=== PATIENT | female | born 1960 | race Caucasian/White ===

== ENCOUNTER 2022-06-28 07:36 | Outpatient (CLI) | payer MEDICARE, SELFPAY ==
--- NOTE | 2022-06-28 08:02 | USCV_ITS ---
Roxanne Jaeger Age: 61 Gender: F : 1960 Exam Date: 06/28/2022 08:15 Ordering Phys: Valeria Cuellar APN Technologist: BETSEY Exam Location: [facility] Indication: Swollen firm Rt lower leg HISTORY: Swollen Rt lower leg PROCEDURES: Venous duplex imaging was performed in only the right lower extremity.the following venous structures were evaluated: common femoral vein, profunda vein, proximal portion of the greater saphenous vein, superficial femoral vein, and the popliteal vein. In addition, the posterior tibial and peroneal trunk were evaluated. Serial compression, augmentation maneuvers, and spectral Doppler flow evaluation were performed. FINDINGS: Evidence of acute occlusive deep vein thrombosis in the right peroneal vein with abnormal flow dynamics. No additional DVT. CONCLUSIONS Acute right lower extremity deep venous thrombosis, peroneal vein. Dr. Alia Gonzalez DO (Electronically Signed) Final Date: 28 June 2022 11:32 S
== END 2022-06-28 07:37 | disposition home or self-care (01) ==
PROVIDERS: PCP Nurse Practitioner Family; Visit Provider Nurse Practitioner Family
DX: I82.451 Acute embolism and thrombosis of right peroneal vein (principal); M79.604 Pain in right leg; M79.89 Other specified soft tissue disorders
CPT/HCPCS: 93971

== ENCOUNTER 2022-06-28 08:50 | Emergency (ER) | payer MEDICARE, SELFPAY ==
[2022-06-28 09:01] VITALS: BP 192/116; PULSE 77; RESP 16; TEMP 36.9; O2SAT 99; BMI 34.4
--- NOTE | 2022-06-28 09:08 | W.ED.EXTPRO ---
HPI - Extremity Problem General: Chief complaint: Extremity Problem,Nontraumatic Stated complaint: Right blood clot behind knee, Ultrasound sent Time Seen by Provider: 06/28/22 08:51 Source: patient Mode of arrival: ambulatory Limitations: no limitations History of Present Illness: Patient is a 61-year-old female presents to ED today after ultrasound sent her here after they were scanning her right lower leg and noted a positive DVT. Patient tells me she has had bilateral lower extremity swelling worse on the right over the past several weeks. She has noticed pain in the right leg over the past 2 weeks. She states her PCP ordered the ultrasound to evaluate for DVT. Patient denies recent surgery. Denies periods of prolonged inactivity. She is not on any type of hormone replacement. She denies previous DVT/PE. States she chronically gets some shortness of breath with exertion but has not noticed anything outside of her baseline. She currently has no chest pain, shortness of breath, difficulty breathing. Vital signs upon arrival are stable apart from hypertension. Patient tells me she has known hypertension but never checks her blood pressures at home. MD Complaint: extremity pain and extremity swelling Onset (ago): week(s) Pain Consistency: constant Location: left, right and lower extremity Radiation: none Relieving factors: nothing Exacerbating factors: nothing Associated symptoms: Reports no associated symptoms; Deny chest pain or fever(s) Context: history of peripheral vascular disease Review of Systems Const: Denies: fever(s), chills, body aches, fatigue or malaise Card: Reports: edema, swelling of feet/ankles and dyspnea on exertion (chronic); Denies: chest pain, palpitations, irregular heart rhythm, lightheadedness, syncope, pre-syncope, orthopnea, leg pain with exertion or acrocyanosis Resp: Denies: dyspnea, productive cough, non-productive cough, wheezing, stridor, pain on inspiration, change in phlegm color, hemoptysis or chest congestion GI: Denies: abdominal pain Musc: Reports: extremity pain (R LE) and extremity swelling; Denies: neck pain, back pain, joint pain or joint swelling Neuro: Denies: headache(s), numbness in extremities, weakness in extremities or sensory changes Physical Exam Const: COMMON NORMALS: no acute distress, patient oriented x3, no limitations and alert GENERAL APPEARANCE: cooperative NUTRITIONAL APPEARANCE: obese ORIENTATION/CONSCIOUSNESS: Yes awake, Yes oriented to person, Yes oriented to place and Yes oriented to time Resp: COMMON NORMALS: normal respiratory effort and clear to auscultation bilaterally AUSCULTATION: clear to auscultation bilaterally Cardio: COMMON NORMALS: regular rate and regular rhythm RATE: regular rate RHYTHM: regular rhythm Extremity: GENERAL: Yes normal exam except as noted OTHER: bilateral R>L pitting edema; pt has pain to posterior R knee/calf consistent with history of DVT seen recently on US; mild venous stasis skin changes; stage I/II ulcer to R plantar proximal foot-dressed/non-infected Neuro: DARIA COMA SCALE: document GCS findings Daria coma scale eye opening: Spontaneous [place] coma scale verbal response: Orientated [place] coma scale motor response: Obey commands Daria coma scale total score: 15 COMMON NORMALS: patient oriented x3, moves all extremities, no focal motor deficits, no sensory deficits noted and gait normal SENSORIUM/ORIENTATION: Yes alert, Yes oriented to person, Yes oriented to place and Yes oriented to time Course Vital Signs: Vital signs: Vital Signs Temperature 98.4 F 06/28/22 09:01 Pulse Rate 79 06/28/22 11:22 Respiratory Rate 16 06/28/22 11:22 Blood Pressure 198/104 06/28/22 11:22 Pulse Oximetry 95 06/28/22 11:22 Oxygen Delivery Me thod 06/28/22 09:47 MDM - Extremity (Nontraumatic) Medical Decision Making Patient has a DVT to her right peroneal vein seen on ultrasound imaging was performed earlier today. She has no contraindication to anticoagulation therefore patient will be placed on Eliquis. Recommend follow-up with her primary care provider within the next 1 to 2 weeks so they can establish a plan for length of treatment and repeat ultrasound imaging. Patient is hypertensive upon arrival. She tells me she never takes her blood pressure at home but is on medication for this. Recommend she keep a blood pressure log and speak to primary care so they can titrate medications as needed. Blood work here overall unremarkable. She does have mild elevations to her BNP at 387. CXR does not show cardiomegaly. Can be followed up through her primary care provider as well. Strict return ED precautions given. Lab Data 06/28/22 09:40 06/28/22 09:40 Radiology Impressions Chest X-Ray 06/28/22 09:21 Impression: Atherosclerosis. Laboratory Results WBC 10.8 10^3/uL (4.0-10.0) H 06/28/22 09:40 RBC 4.52 10^6/uL (4.1-5.3) 06/28/22 09:40 Hgb 13.5 g/dL (11.5-15.3) 06/28/22 09:40 Hct 41.8 % (37.0-47.0) 06/28/22 09:40 MCV 92.5 fl (81-99) 06/28/22 09:40 MCH 29.9 pg (28.0-34.0) 06/28/22 09:40 MCHC 32.3 g/dL (30.0-36.0) 06/28/22 09:40 RDW 14.3 % (12.1-15.1) 06/28/22 09:40 Plt Count 259 10^3/cmm (130-400) 06/28/22 09:40 MPV 11.2 fL (7.4-10.4) H 06/28/22 09:40 Neut % (Auto) 57.4 % 06/28/22 09:40 Lymph % (Auto) 34.9 % 06/28/22 09:40 [place] % (Auto) 4.8 % 06/28/22 09:40 Eos % (Auto) 1.8 % 06/28/22 09:40 Baso % (Auto) 0.6 % 06/28/22 09:40 Neut # (Auto) 6.21 10^3/uL (1.8-7.7) 06/28/22 09:40 Lymph # (Auto) 3.8 10^3/uL (0.8-4.8) 06/28/22 09:40 [place] # (Auto) 0.5 10^3/uL (0.2-0.9) 06/28/22 09:40 Eos # (Auto) 0.2 10^3/uL (0.0-0.8) 06/28/22 09:40 Baso # (Auto) 0.1 10^3/uL (0.0-0.1) 06/28/22 09:40 Nucleated RBC % (auto) 0 % 06/28/22 09:40 Nucleated RBCs # 0.0 /100WBC 06/28/22 09:40 Sodium 138 mmol/L (136-145) 06/28/22 09:40 Potassium 4.4 mmol/L (3.5-5.1) 06/28/22 09:40 Chloride 101 mmol/L (98-107) 06/28/22 09:40 Carbon Dioxide 28 mmol/L (22-29) 06/28/22 09:40 Anion Gap 13.4 (5-19) 06/28/22 09:40 BUN 19 mg/dL (8-23) 06/28/22 09:40 Creatinine 1.0 mg/dL (0.5-0.9) H 06/28/22 09:40 GFR Calculation 56.6 mL/min (90-130) L 06/28/22 09:40 Glucose 128 mg/dL (65-115) H 06/28/22 09:40 Calculated Osmolality 290 mOsm/kg (285-295) 06/28/22 09:40 Calcium 9.5 mg/dL (8.5-10.5) 06/28/22 09:40 Total Bilirubin 0.2 mg/dL (0.15-1.2) 06/28/22 09:40 AST 7 U/L (0-32) 06/28/22 09:40 ALT 7 U/L (0-33) 06/28/22 09:40 Alkaline Phosphatase 72 U/L (35-105) 06/28/22 09:40 NT-Pro-B Natriuret Pep 387 pg/mL (0-125) H 06/28/22 09:40 Total Protein 6.5 g/dL (6.6-8.7) L 06/28/22 09:40 Albumin 3.4 g/dL (3.5-5.2) L 06/28/22 09:40 Globulin 3.1 g/dL (1.3-4.6) 06/28/22 09:40 Discharge Plan Discharge Patient Disposition: Home Clinical Impression: Deep vein thrombosis of lower extremity, Hypertension, Bilateral leg edema Condition: Stable Prescriptions: Jose Miguel Estrada DVT-PE Treat 30D Start 5 mg (74 tabs) tablets,dose pack See Rx Instructions .ROUTE .COMPLEX Qty: 74 0RF Rx Instructions: orally per package directions Discharge Orders: Discharge ED (Routine); Ordered 06/28/22 Ordered By: Jasmine Valdes Referrals: Valeria Cuellar APN [Primary Care Provider] - Patient Instructions: Apixaban (By mouth) (Eliquis), Deep Vein Thrombosis (DC), Leg Edema (ED) Activity Restrictions/Additional Instructions: As we discussed fill your prescription for blood thinners today and start them immediately. Your prescription should be a prefilled blister/starter pack in which you will take 10 mg twice daily for 7 days and then 5 mg twice daily from then on. Please follow-up with your primary care provider in the next 1 to 2 weeks so they can establish plan for continuing your blood thinners and ultrasound monitoring. They can also speak to you about your lower leg swelling. You need to return to the emergency department for severe chest pain, shortness of breath, difficulty breathing or any other concerns you may have. Coding Level of Care Code ED Cyber Systems Administrator for [place]
--- NOTE | 2022-06-28 09:21 | XR_ITS ---
WS: [id number] Portable AP upright chest, 06/28/2022 Clinical Data: edema Comparison: None. Findings: No nodules, masses or effusions are seen. The heart is normal. The pulmonary vascularity is not increased. No pneumonia or pneumothorax is seen. The aortic arch and descending thoracic aorta s how mild tortuosity XR/XR chest 1V portable [id number] Impression: Atherosclerosis.
--- NOTE | 2022-06-28 09:21 | ECG_ITS ---
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 Measurements Intervals [place] Rate: 79 P: 67 [place]: 218 QRS: -25 QRSD: 112 T: 68 QT: 370 QTc: 426 Interpretive Statements SINUS RHYTHM WITH FIRST DEGREE AV BLOCK LOW QRS VOLTAGE IN PRECORDIAL LEADS [QRS DEFLECTION < 1.0 mV IN CHEST LEADS] PATTERN CONSISTENT WITH PULMONARY DISEASE SEPTAL MYOCARDIAL INFARCTION , PROBABLY OLD [40+ ms Q WAVE IN V1/V2] No previous ECG available for comparison Electronically Signed On 06-28-2022 17:32:40 CHILD AND ADOLESCENT PSYCHIATRIST by Lb Vaughan M.D. [email or web address]
[2022-06-28 09:47] VITALS: BP 197/120; PULSE 78; RESP 16; O2SAT 96
[2022-06-28 09:49] LABS: Basophils # 0.1 10^3/uL (0.0-0.1); Basophils % 0.6 %; Eosinophils # 0.2 10^3/uL (0.0-0.8); Eosinophils % 1.8 %; Hematocrit 41.8 % (37.0-47.0); Hemoglobin 13.5 g/dL (11.5-15.3); Lymphocytes # 3.8 10^3/uL (0.8-4.8); Lymphocytes % 34.9 %; Mean Corpuscular HGB Conc 32.3 g/dL (30.0-36.0); Mean Corpuscular Hemoglobin 29.9 pg (28.0-34.0); Mean Corpuscular Volume 92.5 fl (81-99); Mean Platelet Volume 11.2 fL (7.4-10.4); Monocytes # 0.5 10^3/uL (0.2-0.9); Monocytes % 4.8 %; Neutrophils # 6.21 10^3/uL (1.8-7.7); Neutrophils % 57.4 %; Nucleated Red Blood Cells % 0 %; Platelet Count 259 10^3/cmm (130-400); Red Blood Count 4.52 10^6/uL (4.1-5.3); Red Cell Distribution Width 14.3 % (12.1-15.1); White Blood Count 10.8 10^3/uL (4.0-10.0)
[2022-06-28] MEDS: hyDRALAzine 20 mg/mL INJ 1 mL 10 MG IVP (09:53)
[2022-06-28 10:20] LABS: Alanine Aminotransferase 7 U/L (0-33); Albumin Level 3.4 g/dL (3.5-5.2); Alkaline Phosphatase 72 U/L (35-105); Anion Gap 13.4 (5-19); Aspartate Amino Transferase 7 U/L (0-32); Blood Urea Nitrogen 19 mg/dL (8-23); Calcium 9.5 mg/dL (8.5-10.5); Carbon Dioxide 28 mmol/L (22-29); Chloride 101 mmol/L (98-107); Globulin 3.1 g/dL (1.3-4.6); Glomerular Filtration Rate 56.6 mL/min (90-130); Glucose 128 mg/dL (65-115); NT Pro B Type Natriuretic Pept 387 pg/mL (0-125); Osmolality Calculated 290 mOsm/kg (285-295); Potassium 4.4 mmol/L (3.5-5.1); Sodium 138 mmol/L (136-145); Total Bilirubin 0.2 mg/dL (0.15-1.2); Total Protein 6.5 g/dL (6.6-8.7)
[2022-06-28 10:39] VITALS: BP 184/126; PULSE 78; O2SAT 95
[2022-06-28 11:22] VITALS: BP 198/104; PULSE 79; RESP 16; O2SAT 95
== END 2022-06-28 11:23 | disposition home or self-care (01) ==
PROVIDERS: Emergency Provider Physician Assistant; PCP Nurse Practitioner Family
DX: I82.401 Acute embolism and thrombosis of unspecified deep veins of right lower extremity (principal); R60.0 Localized edema; I10 Essential (primary) hypertension
CPT/HCPCS: 71045; 80053; 83880; 85025; 93005; 93971; 96374; 99285; J0360

== ENCOUNTER → 2022-08-19 10:09 | Outpatient (BNVA) | payer MEDICARE, SELFPAY | PROVIDERS: PCP Nurse Practitioner Family; Visit Provider Thoracic Surgery (Cardiothoracic Vascular Surgery) | DX: I82.451 Acute embolism and thrombosis of right peroneal vein (principal); I83.93 Asymptomatic varicose veins of bilateral lower extremities; F17.210 Nicotine dependence, cigarettes, uncomplicated | CPT/HCPCS: 99203 ==

== ENCOUNTER → 2022-08-26 15:30 | Outpatient (BNVA) | payer MEDICARE, SELFPAY | PROVIDERS: PCP Nurse Practitioner Family; Visit Provider Podiatrist Foot & Ankle Surgery | DX: E11.621 Type 2 diabetes mellitus with foot ulcer (principal); L97.513 Non-pressure chronic ulcer of other part of right foot with necrosis of muscle; E11.42 Type 2 diabetes mellitus with diabetic polyneuropathy; M21.611 Bunion of right foot; M21.612 Bunion of left foot; M21.41 Flat foot [pes planus] (acquired), right foot; M21.42 Flat foot [pes planus] (acquired), left foot; Z79.4 Long term (current) use of insulin; Z79.84 Long term (current) use of oral hypoglycemic drugs | CPT/HCPCS: 11043; 36415; 73630; 80053; 85025; 85651; 86140; 87070; 87075; 87205; 99204 ==

== ENCOUNTER 2022-08-27 11:46 | Outpatient (CLI) | payer MEDICARE, SELFPAY ==
--- NOTE | 2022-08-27 11:57 | USCV_ITS ---
Roxanne Jaeger Age: 61 Gender: F : 1960 Exam Date: 08/27/2022 12:08 Ordering Phys: Valeria Cuellar APN Technologist: CT [place] [facility] [place] Indication: lt leg swelling PROCEDURES: Venous duplex imaging was performed in only the left lower extremity. In addition, the posterior tibial and peroneal trunk were evaluated. On the left side, the common femoral, superficial femoral, profunda femoral, popliteal, posterior tibial, greater saphenous veins, and the peroneal trunk were identified and interrogated in the standard fashion. These veins were found to be easily compressible with spontaneous blood flow. No evidence of insufficiency or thrombus noted. FINDINGS: no dvt, there is a abnormal bakers cyst/ hematoma in pop fossa CONCLUSIONS No evidence of left lower extremity DVT. Complex left popliteal cyst or hematoma measuring 2.3 x 1.2 x 3.6cm Broderick Turner MD (Electronically Signed) Final Date: 27 August 2022 13:22 S
== END 2022-08-27 11:47 | disposition home or self-care (01) ==
PROVIDERS: PCP Nurse Practitioner Family; Visit Provider Nurse Practitioner Family
DX: M79.89 Other specified soft tissue disorders (principal)
CPT/HCPCS: 93971

== ENCOUNTER → 2022-09-02 07:56 | Outpatient (BNVA) | payer MEDICARE, SELFPAY | PROVIDERS: PCP Nurse Practitioner Family; Visit Provider Podiatrist Foot & Ankle Surgery | DX: E11.42 Type 2 diabetes mellitus with diabetic polyneuropathy (principal); M21.611 Bunion of right foot; M21.612 Bunion of left foot; M21.41 Flat foot [pes planus] (acquired), right foot; M21.42 Flat foot [pes planus] (acquired), left foot; E11.621 Type 2 diabetes mellitus with foot ulcer; L97.513 Non-pressure chronic ulcer of other part of right foot with necrosis of muscle; Z79.84 Long term (current) use of oral hypoglycemic drugs; Z79.4 Long term (current) use of insulin | CPT/HCPCS: 99214 ==

== ENCOUNTER → 2022-09-09 07:47 | Outpatient (BNVA) | payer MEDICARE, SELFPAY | PROVIDERS: PCP Nurse Practitioner Family; Visit Provider Podiatrist Foot & Ankle Surgery | DX: E11.621 Type 2 diabetes mellitus with foot ulcer (principal); L97.513 Non-pressure chronic ulcer of other part of right foot with necrosis of muscle; E11.42 Type 2 diabetes mellitus with diabetic polyneuropathy; M21.611 Bunion of right foot; M21.612 Bunion of left foot; M21.41 Flat foot [pes planus] (acquired), right foot; M21.42 Flat foot [pes planus] (acquired), left foot; Z79.84 Long term (current) use of oral hypoglycemic drugs; Z79.4 Long term (current) use of insulin | CPT/HCPCS: 99213 ==

== ENCOUNTER → 2022-09-16 08:26 | Outpatient (BNVA) | payer MEDICARE, SELFPAY | PROVIDERS: PCP Nurse Practitioner Family; Visit Provider Podiatrist Foot & Ankle Surgery | DX: E11.621 Type 2 diabetes mellitus with foot ulcer (principal); Z79.4 Long term (current) use of insulin; Z79.84 Long term (current) use of oral hypoglycemic drugs; E11.42 Type 2 diabetes mellitus with diabetic polyneuropathy; L97.513 Non-pressure chronic ulcer of other part of right foot with necrosis of muscle; M21.611 Bunion of right foot; M21.612 Bunion of left foot; M21.41 Flat foot [pes planus] (acquired), right foot; M21.42 Flat foot [pes planus] (acquired), left foot | CPT/HCPCS: 99214 ==

== ENCOUNTER → 2022-09-23 08:18 | Outpatient (BNVA) | payer MEDICARE, SELFPAY | PROVIDERS: PCP Nurse Practitioner Family; Visit Provider Podiatrist Foot & Ankle Surgery | DX: E11.621 Type 2 diabetes mellitus with foot ulcer (principal); L97.513 Non-pressure chronic ulcer of other part of right foot with necrosis of muscle; E11.42 Type 2 diabetes mellitus with diabetic polyneuropathy; M21.611 Bunion of right foot; M21.612 Bunion of left foot; M21.41 Flat foot [pes planus] (acquired), right foot; M21.42 Flat foot [pes planus] (acquired), left foot; Z86.718 Personal history of other venous thrombosis and embolism; Z79.01 Long term (current) use of anticoagulants; Z79.84 Long term (current) use of oral hypoglycemic drugs; Z79.4 Long term (current) use of insulin | CPT/HCPCS: 11043; 99214 ==

== ENCOUNTER 2022-09-28 10:07 | Outpatient (CLI) | payer MEDICARE, SELFPAY ==
--- NOTE | 2022-09-28 10:18 | USCV_ITS ---
Roxanne Jaeger Age: 62 Gender: F : 1960 Exam Date: 09/28/2022 10:25 Ordering Phys: Sameer Lares DPM Technologist: CT [place] [facility] [place]ication: palp area rt ankle PROCEDURES: Venous duplex imaging was performed in only the right lower extremity. On the right side, the common femoral, superficial femoral, profunda femoral, popliteal, posterior tibial, greater saphenous veins and the peroneal trunk were identified and interrogated in the standard fashion. These veins were found to be easily compressible with spontaneous blood flow. No evidence of insufficiency or thrombus noted. FINDINGS: Normal 2-D Doppler and augmentation and compressibility throughout the lower extremity venous structures. Additional imaging through the proximal calf veins also reveals no thrombus. Limited evaluation of the greater saphenous vein is patent with no thrombus. Palpable area near the ankle corresponds to a varicose vein. CONCLUSIONS No DVT right lower extremity. Dr. Alia Gonzalez DO (Electronically Signed) Final Date: 28 Sep 2022 11:49 S
== END 2022-09-28 10:08 | disposition home or self-care (01) ==
PROVIDERS: PCP Nurse Practitioner Family; Visit Provider Podiatrist Foot & Ankle Surgery
DX: M79.604 Pain in right leg (principal)
CPT/HCPCS: 93971

== ENCOUNTER → 2022-09-30 08:58 | Outpatient (BNVA) | payer MEDICARE, SELFPAY | PROVIDERS: PCP Nurse Practitioner Family; Visit Provider Podiatrist Foot & Ankle Surgery | DX: E11.42 Type 2 diabetes mellitus with diabetic polyneuropathy (principal); E11.621 Type 2 diabetes mellitus with foot ulcer; Z79.84 Long term (current) use of oral hypoglycemic drugs; Z79.4 Long term (current) use of insulin; L97.513 Non-pressure chronic ulcer of other part of right foot with necrosis of muscle; M21.611 Bunion of right foot; M21.612 Bunion of left foot; M21.41 Flat foot [pes planus] (acquired), right foot; M21.42 Flat foot [pes planus] (acquired), left foot; Z86.718 Personal history of other venous thrombosis and embolism; Z79.01 Long term (current) use of anticoagulants | CPT/HCPCS: 11042; 99213 ==

== ENCOUNTER → 2022-10-07 09:15 | Outpatient (BNVA) | payer MEDICARE, SELFPAY | PROVIDERS: PCP Nurse Practitioner Family; Visit Provider Podiatrist Foot & Ankle Surgery | DX: E11.621 Type 2 diabetes mellitus with foot ulcer (principal); Z79.4 Long term (current) use of insulin; Z79.84 Long term (current) use of oral hypoglycemic drugs; E11.42 Type 2 diabetes mellitus with diabetic polyneuropathy; L97.513 Non-pressure chronic ulcer of other part of right foot with necrosis of muscle; M21.611 Bunion of right foot; M21.612 Bunion of left foot; M21.41 Flat foot [pes planus] (acquired), right foot; M21.42 Flat foot [pes planus] (acquired), left foot; Z86.718 Personal history of other venous thrombosis and embolism; Z79.01 Long term (current) use of anticoagulants | CPT/HCPCS: 11042 ==

== ENCOUNTER → 2022-10-28 10:27 | Outpatient (BNVA) | payer MEDICARE, SELFPAY | PROVIDERS: PCP Nurse Practitioner Family; Visit Provider Podiatrist Foot & Ankle Surgery | DX: E11.42 Type 2 diabetes mellitus with diabetic polyneuropathy (principal); M21.611 Bunion of right foot; M21.612 Bunion of left foot; M21.41 Flat foot [pes planus] (acquired), right foot; M21.42 Flat foot [pes planus] (acquired), left foot; L97.513 Non-pressure chronic ulcer of other part of right foot with necrosis of muscle; Z86.718 Personal history of other venous thrombosis and embolism; Z79.01 Long term (current) use of anticoagulants; E11.621 Type 2 diabetes mellitus with foot ulcer; Z79.4 Long term (current) use of insulin; Z79.84 Long term (current) use of oral hypoglycemic drugs | CPT/HCPCS: 11043 ==

== ENCOUNTER → 2022-11-04 08:25 | Outpatient (BNVA) | payer MEDICARE, SELFPAY | PROVIDERS: PCP Nurse Practitioner Family; Visit Provider Podiatrist Foot & Ankle Surgery | DX: E11.621 Type 2 diabetes mellitus with foot ulcer (principal); L97.513 Non-pressure chronic ulcer of other part of right foot with necrosis of muscle; E11.42 Type 2 diabetes mellitus with diabetic polyneuropathy; M21.611 Bunion of right foot; M21.612 Bunion of left foot; M21.41 Flat foot [pes planus] (acquired), right foot; M21.42 Flat foot [pes planus] (acquired), left foot; Z86.718 Personal history of other venous thrombosis and embolism; Z79.01 Long term (current) use of anticoagulants; Z79.4 Long term (current) use of insulin; Z79.84 Long term (current) use of oral hypoglycemic drugs | CPT/HCPCS: 11042 ==

== ENCOUNTER → 2022-11-11 10:21 | Outpatient (BNVA) | payer MEDICARE, SELFPAY | PROVIDERS: PCP Nurse Practitioner Family; Visit Provider Podiatrist Foot & Ankle Surgery | DX: E11.621 Type 2 diabetes mellitus with foot ulcer (principal); Z79.4 Long term (current) use of insulin; Z79.84 Long term (current) use of oral hypoglycemic drugs; L97.513 Non-pressure chronic ulcer of other part of right foot with necrosis of muscle; Z51.89 Encounter for other specified aftercare; E11.42 Type 2 diabetes mellitus with diabetic polyneuropathy; M21.611 Bunion of right foot; M21.612 Bunion of left foot; M21.41 Flat foot [pes planus] (acquired), right foot; M21.42 Flat foot [pes planus] (acquired), left foot; Z86.718 Personal history of other venous thrombosis and embolism; Z79.01 Long term (current) use of anticoagulants | CPT/HCPCS: 99213 ==

== ENCOUNTER → 2022-11-18 08:11 | Outpatient (BNVA) | payer MEDICARE, SELFPAY | PROVIDERS: PCP Nurse Practitioner Family; Visit Provider Podiatrist Foot & Ankle Surgery | DX: E11.42 Type 2 diabetes mellitus with diabetic polyneuropathy (principal); E11.621 Type 2 diabetes mellitus with foot ulcer; M21.611 Bunion of right foot; M21.612 Bunion of left foot; M21.41 Flat foot [pes planus] (acquired), right foot; M21.42 Flat foot [pes planus] (acquired), left foot; Z86.718 Personal history of other venous thrombosis and embolism; Z79.01 Long term (current) use of anticoagulants; L97.512 Non-pressure chronic ulcer of other part of right foot with fat layer exposed; Z79.84 Long term (current) use of oral hypoglycemic drugs; Z79.4 Long term (current) use of insulin | CPT/HCPCS: 11042 ==

== ENCOUNTER → 2022-11-30 07:31 | Outpatient (BNVA) | payer MEDICARE, SELFPAY | PROVIDERS: PCP Nurse Practitioner Family; Visit Provider Podiatrist Foot & Ankle Surgery | DX: E11.42 Type 2 diabetes mellitus with diabetic polyneuropathy (principal); M21.611 Bunion of right foot; M21.612 Bunion of left foot; M21.41 Flat foot [pes planus] (acquired), right foot; M21.42 Flat foot [pes planus] (acquired), left foot; Z79.01 Long term (current) use of anticoagulants; L97.512 Non-pressure chronic ulcer of other part of right foot with fat layer exposed; E11.621 Type 2 diabetes mellitus with foot ulcer; Z79.4 Long term (current) use of insulin; Z79.84 Long term (current) use of oral hypoglycemic drugs | CPT/HCPCS: 11042; 99214 ==

== ENCOUNTER → 2022-12-07 07:08 | Outpatient (BNVA) | payer MEDICARE, SELFPAY | PROVIDERS: PCP Nurse Practitioner Family; Visit Provider Podiatrist Foot & Ankle Surgery | DX: E11.42 Type 2 diabetes mellitus with diabetic polyneuropathy; M21.611 Bunion of right foot; M21.612 Bunion of left foot; M21.41 Flat foot [pes planus] (acquired), right foot; M21.42 Flat foot [pes planus] (acquired), left foot; Z79.01 Long term (current) use of anticoagulants; L97.512 Non-pressure chronic ulcer of other part of right foot with fat layer exposed; E11.621 Type 2 diabetes mellitus with foot ulcer; Z79.84 Long term (current) use of oral hypoglycemic drugs; Z79.4 Long term (current) use of insulin | CPT/HCPCS: 11042; 99214 ==

== ENCOUNTER 2022-12-13 09:30 | Outpatient (CLI) | payer MEDICARE, SELFPAY ==
--- NOTE | 2022-12-13 10:00 | USCV_ITS ---
Roxanne Jaeger Age: 62 Gender: F : 1960 Exam Date: 12/13/2022 10:05 Ordering Phys: Sameer Lares DPM Technologist: RICK [place]am [place] [facility] [place] Indication: LE Swelling HISTORY: Lower extremity swelling. Hx of DVT in Rt Pop PROCEDURES: Venous duplex imaging was performed in only the right lower extremity. The following venous structures were evaluated: common femoral vein, profunda vein, proximal portion of the greater saphenous vein, superficial femoral vein, and the popliteal vein. In addition, the posterior tibial and peroneal trunk were evaluated. Serial compression, augmentation maneuvers, and spectral Doppler flow evaluation were performed. FINDINGS: Normal 2-D Doppler and augmentation and compressibility throughout the lower extremity venous structures. Additional imaging through the proximal calf veins also reveals no thrombus. Limited evaluation of the greater saphenous vein is patent with no thrombus. CONCLUSIONS No DVT right lower extremity. Dr. Alia Gonzalez DO (Electronically Signed) Final Date: 13 December 2022 10:31 S
== END 2022-12-13 09:31 | disposition home or self-care (01) ==
PROVIDERS: PCP Nurse Practitioner Family; Visit Provider Podiatrist Foot & Ankle Surgery
DX: M79.661 Pain in right lower leg (principal); Z86.718 Personal history of other venous thrombosis and embolism; M79.89 Other specified soft tissue disorders; E11.621 Type 2 diabetes mellitus with foot ulcer; L97.512 Non-pressure chronic ulcer of other part of right foot with fat layer exposed; Z51.89 Encounter for other specified aftercare; E11.42 Type 2 diabetes mellitus with diabetic polyneuropathy; M21.611 Bunion of right foot; M21.612 Bunion of left foot; M21.41 Flat foot [pes planus] (acquired), right foot; M21.42 Flat foot [pes planus] (acquired), left foot; Z79.01 Long term (current) use of anticoagulants; M79.605 Pain in left leg; Z79.84 Long term (current) use of oral hypoglycemic drugs; Z79.4 Long term (current) use of insulin
CPT/HCPCS: 11042; 93971

== ENCOUNTER → 2022-12-20 12:57 | Outpatient (BNVA) | payer MEDICARE, SELFPAY | PROVIDERS: PCP Nurse Practitioner Family; Visit Provider Podiatrist Foot & Ankle Surgery | DX: E11.621 Type 2 diabetes mellitus with foot ulcer (principal); E11.42 Type 2 diabetes mellitus with diabetic polyneuropathy; M21.611 Bunion of right foot; M21.612 Bunion of left foot; M21.41 Flat foot [pes planus] (acquired), right foot; M21.42 Flat foot [pes planus] (acquired), left foot; Z79.01 Long term (current) use of anticoagulants; L97.512 Non-pressure chronic ulcer of other part of right foot with fat layer exposed | CPT/HCPCS: 99213 ==

== ENCOUNTER → 2022-12-28 09:38 | Outpatient (BNVA) | payer MEDICARE, SELFPAY | PROVIDERS: PCP Nurse Practitioner Family; Visit Provider Podiatrist Foot & Ankle Surgery | DX: E11.621 Type 2 diabetes mellitus with foot ulcer (principal); L97.512 Non-pressure chronic ulcer of other part of right foot with fat layer exposed; E11.42 Type 2 diabetes mellitus with diabetic polyneuropathy; M21.611 Bunion of right foot; M21.612 Bunion of left foot; M21.41 Flat foot [pes planus] (acquired), right foot; M21.42 Flat foot [pes planus] (acquired), left foot; Z79.01 Long term (current) use of anticoagulants; Z79.84 Long term (current) use of oral hypoglycemic drugs; Z79.4 Long term (current) use of insulin | CPT/HCPCS: 11042 ==

== ENCOUNTER → 2023-01-18 12:55 | Outpatient (BNVA) | payer MEDICARE, SELFPAY | PROVIDERS: PCP Nurse Practitioner Family; Visit Provider Nurse Practitioner Family | DX: L89.892 Pressure ulcer of other site, stage 2 (principal) | CPT/HCPCS: 11042; 87070; 87077; 87176; 87186; 87205; 99213; A6210; A6251 ==

== ENCOUNTER 2023-01-19 10:36 | Outpatient (CLI) | payer MEDICARE, SELFPAY ==
[2023-01-19 11:14] LABS: Alanine Aminotransferase 9 U/L (0-33); Albumin Level 3.9 g/dL (3.5-5.2); Alkaline Phosphatase 68 U/L (35-105); Anion Gap 14.5 (5-19); Aspartate Amino Transferase 6 U/L (0-32); Blood Urea Nitrogen 28 mg/dL (8-23); Calcium 9.6 mg/dL (8.5-10.5); Carbon Dioxide 29 mmol/L (22-29); Chloride 102 mmol/L (98-107); Globulin 3.3 g/dL (1.3-4.6); Glomerular Filtration Rate 41.6 mL/min (90-130); Glucose 160 mg/dL (65-115); Osmolality Calculated 301 mOsm/kg (285-295); Potassium 4.5 mmol/L (3.5-5.1); Sodium 141 mmol/L (136-145); Total Bilirubin 0.2 mg/dL (0.15-1.2); Total Protein 7.2 g/dL (6.6-8.7)
== END 2023-01-19 10:37 | disposition home or self-care (01) ==
PROVIDERS: PCP Nurse Practitioner Family; Visit Provider Nurse Practitioner Family
DX: E11.621 Type 2 diabetes mellitus with foot ulcer (principal); L97.509 Non-pressure chronic ulcer of other part of unspecified foot with unspecified severity
CPT/HCPCS: 36415; 80053

== ENCOUNTER 2023-01-21 15:42 | Outpatient (CLI) | payer MEDICARE, SELFPAY ==
--- NOTE | 2023-01-21 16:15 | MR_ITS ---
WS: [id number] MRI RIGHT FOOT WITH AND WITHOUT CONTRAST. COMPARISON: Radiographs 08/26/2022 Multiplanar, multisequence imaging is performed with contrast. MultiHance 20 mL IV. Marked hallux valgus deformity of the first metatarsophalangeal joint. Erosions with joint space narr owing and osteophytes at the first metatarsophalangeal joint. Erosions on both sides of the joint. Mi ld erosion and enhancement involving the medial most aspect of the first metatarsal head. There is ov erlying soft tissue edema with only minimal enhancement. Marked flattening and loss of the normal arch of the foot. Small erosions along the tarsal metatarsal articulation. Osteophytes and bone production in the midfoot. Mild loss of the arch and plantar move ment of the tarsal bones. These findings are most consistent with a Charcot joint related to diabetes . Lisfranc joint not significantly widened. Smaller subtalar joint erosions. There is a large amount of edema surrounding the ankle and foot. No focal collections. No significant ly enhancing collections. There is mild enhanced at the first metatarsophalangeal joint location The Achilles tendon appears normal. As visualized the flexor and extension tendons are normal other t schneider edema along the tendon sheaths. IMPRESSION: 1. Marked hallux valgus deformity. Very tiny erosion with mild enhancement involving the first metata rsal head. Suspicious for early changes of osteomyelitis. 2. Overlying soft tissue edema and mild cellulitis at the level of the first metatarsophalangeal join t. 3. Charcot joint involving the midfoot.
[2023-01-21] MEDS: gadobenate dimeglumine 20 mL vial IV (17:52)
== END 2023-01-21 15:43 | disposition home or self-care (01) ==
PROVIDERS: PCP Nurse Practitioner Family; Visit Provider Nurse Practitioner Family
DX: E11.621 Type 2 diabetes mellitus with foot ulcer (principal); L97.509 Non-pressure chronic ulcer of other part of unspecified foot with unspecified severity; M20.11 Hallux valgus (acquired), right foot; E11.610 Type 2 diabetes mellitus with diabetic neuropathic arthropathy
CPT/HCPCS: 73720; A9577

== ENCOUNTER → 2023-01-25 10:52 | Outpatient (BNVA) | payer MEDICARE, SELFPAY | PROVIDERS: PCP Nurse Practitioner Family; Visit Provider Nurse Practitioner Family | DX: I96 Gangrene, not elsewhere classified (principal); L89.512 Pressure ulcer of right ankle, stage 2 | CPT/HCPCS: 11042; A6210; A6251 ==

== ENCOUNTER → 2023-02-01 10:30 | Outpatient (BNVA) | payer MEDICARE, SELFPAY | PROVIDERS: PCP Nurse Practitioner Family; Visit Provider Nurse Practitioner Family | DX: I96 Gangrene, not elsewhere classified (principal); L89.512 Pressure ulcer of right ankle, stage 2 | CPT/HCPCS: 11042; A6210; A6251 ==

== ENCOUNTER → 2023-02-03 14:31 | Outpatient (BNVA) | payer MEDICARE, SELFPAY | PROVIDERS: PCP Nurse Practitioner Family; Visit Provider Nurse Practitioner Family | DX: L89.512 Pressure ulcer of right ankle, stage 2 (principal) | CPT/HCPCS: 99212; A6210; A6251 ==

== ENCOUNTER → 2023-02-08 13:54 | Outpatient (BNVA) | payer MEDICARE, SELFPAY | PROVIDERS: PCP Nurse Practitioner Family; Visit Provider Nurse Practitioner Family | DX: L89.512 Pressure ulcer of right ankle, stage 2 (principal) | CPT/HCPCS: 97597 ==

== ENCOUNTER → 2023-02-15 09:45 | Outpatient (BNVA) | payer MEDICARE, SELFPAY | PROVIDERS: PCP Nurse Practitioner Family; Visit Provider Podiatrist Foot & Ankle Surgery | DX: E11.42 Type 2 diabetes mellitus with diabetic polyneuropathy (principal); M21.611 Bunion of right foot; M21.612 Bunion of left foot; M21.41 Flat foot [pes planus] (acquired), right foot; M21.42 Flat foot [pes planus] (acquired), left foot; Z79.01 Long term (current) use of anticoagulants; L97.512 Non-pressure chronic ulcer of other part of right foot with fat layer exposed; L84 Corns and callosities; L60.3 Nail dystrophy; L89.612 Pressure ulcer of right heel, stage 2; E11.621 Type 2 diabetes mellitus with foot ulcer; Z79.4 Long term (current) use of insulin; Z79.84 Long term (current) use of oral hypoglycemic drugs | CPT/HCPCS: 11055; 11720; 97597; A6251 ==

== ENCOUNTER → 2023-02-22 08:59 | Outpatient (BNVA) | payer MEDICARE, SELFPAY | PROVIDERS: PCP Nurse Practitioner Family; Visit Provider Nurse Practitioner Family | DX: Z09 Encounter for follow-up examination after completed treatment for conditions other than malignant neoplasm (principal); Z87.2 Personal history of diseases of the skin and subcutaneous tissue | CPT/HCPCS: 29445; A6210 ==

== ENCOUNTER → 2023-03-01 08:55 | Outpatient (BNVA) | payer MEDICARE, SELFPAY | PROVIDERS: PCP Nurse Practitioner Family; Visit Provider Nurse Practitioner Family | DX: Z09 Encounter for follow-up examination after completed treatment for conditions other than malignant neoplasm (principal); Z87.2 Personal history of diseases of the skin and subcutaneous tissue | CPT/HCPCS: 99212 ==

== ENCOUNTER → 2023-03-02 06:53 | Outpatient (BNVA) | payer MEDICARE, SELFPAY | PROVIDERS: PCP Nurse Practitioner Family; Visit Provider Podiatrist Foot & Ankle Surgery | DX: Z51.89 Encounter for other specified aftercare (principal); E11.42 Type 2 diabetes mellitus with diabetic polyneuropathy; M21.611 Bunion of right foot; M21.612 Bunion of left foot; M21.41 Flat foot [pes planus] (acquired), right foot; M21.42 Flat foot [pes planus] (acquired), left foot; Z79.01 Long term (current) use of anticoagulants; L97.512 Non-pressure chronic ulcer of other part of right foot with fat layer exposed; E11.621 Type 2 diabetes mellitus with foot ulcer; Z79.4 Long term (current) use of insulin; Z79.84 Long term (current) use of oral hypoglycemic drugs | CPT/HCPCS: 99214 ==

== ENCOUNTER 2023-03-11 08:40 | Day surgery (SDC) | payer MEDICARE, SELFPAY ==
--- NOTE | 2023-03-11 | XRR_ITS ---
PROCEDURE INFORMATION: Exam: XR Right Foot Exam date and time: 03/11/2023 10:58 AM Age: 62 years old Clinical indication: Other: Metarsal phalangeal joint fusion. Or pic TECHNIQUE: Imaging protocol: Radiologic exam of the right foot. Views: 1 or 2 views. COMPARISON: No relevant prior studies available. FINDINGS: Bones/joints: The patient has had metallic fusion of the 1st MTP joint with a plate and multiple screws anchored on the dorsum of this region. Severe degenerative changes are seen at the 1st MTP joint. Soft tissues: Postoperative soft tissue changes are seen. XR/XR foot RT 2V [id number] IMPRESSION: Postoperative findings as described above.
--- NOTE | 2023-03-11 08:47 | W.PM.OPSUD ---
Surgery/Procedure H&P Update DATE OF PROCEDURE: March 11, 2023 DATE H&P PERFORMED: 03/01/23 H&P UPDATE INFORMATION: I have reviewed H&P completed within last 30 days, I have examined patient prior to procedure, No changes to prior documentation and H&P is in [facility] [place] on date indicated PREOP DIAGNOSIS: Left bunion PLANNED PROCEDURE: Operation Date: 03/11/23 10:20 Proposed Procedures p Right first metatarsal phalangeal joint fusion [id number],M20.21,M21.611,M24.571(Right) - Sameer Lares DPM s Tendon Repair Foot(Right) - Sameer Lares DPM
--- NOTE | 2023-03-11 08:47 | PM.OP ---
Operative Report Date of procedure: March 11, 2023 Pre-op diagnosis: Right hallux valgus bunion deformity Post-op diagnosis: Same Procedure done: Right first metatarsal phalangeal joint fusion. CPT code 53952 Implants: [place] metatarsal phalangeal joint standard dorsal titanium arthrodesis plate with locking screws 2.7 mm distally and 3.5 mm proximally. [place] 3 mm round screw. 3-0 Vicryl, 4-0 Vicryl, 4-0 nylon Specimens removed/disposition: None Pathology: None Surgeon: Sameer Lares DPM Supervisor [place]: Jason Staples Estimated blood loss: 5 39 IV fluids: 0 Urine output: 0 Complications: None Brief History: I reviewed at length with the patient, the risks, potential complications, benefits, alternatives, expectations, and typical outcomes associated with the surgery. The risks and potential complications were explained in detail, including but not limited to infection, wound dehiscence or soft tissue complications, bleeding and hematoma, chronic edema, neuritis or nerve damage producing numbness or chronic pain, CRPS, failure to relieve pain or worsening pain, thick / painful / unsightly scar, limited motion / stiffness, malposition, delayed union, malunion, or nonunion, fracture, reaction to implants, anesthetic complications, venous thromboembolism, and deformity recurrence.? I discussed the notion of no regrets with the patient as it pertains to complications and outcomes. The patient seemed to understand the nature of the proposed care and required convalescence. They asked appropriate questions, answered to their satisfaction. They are aware no guarantees can be made as to a satisfactory outcome and they understand there may be other possible unforeseen complications or outcomes not listed here that will be treated accordingly if they arise. There were no written or implied guarantees given to the patient. They gave informed consent to proceed.? Planning on right first metatarsophalangeal joint fusion, dorsal approach with locking plate.? We will hopefully have her advanced boot for offloading for postoperative recovery and future reoccurrence. Procedure: Under mild sedation the patient was brought to the operating room and remained on the gurney in supine position. A timeout was performed. Anesthesia was then administered by the anesthesia service. Local anesthesia injected by myself consisting of one-to-one mixture 1% lidocaine and 0.5% Marcaine plain in a right male block fashion total of 30 cc utilized. Well-padded pneumatic tourniquet applied to the right leg right lower extremity was scrubbed, prepped and draped utilizing normal aseptic technique. Right foot and leg were exanguinated with an [place] bandage and tourniquet inflated to 250 mmHg. A dorsal longitudinal incision was made over the first metatarsophalangeal joint. The incision was deepened through the subcutaneous tissues, carefully preserving the neurovascular structures. The extensor hallucis longus tendon was identified and retracted. The joint capsule was then exposed and incised to access the first metatarsophalangeal joint. Upon exposure of the joint, arthritic changes were noted. The joint surfaces of the first metatarsal head and the base of the proximal phalanx were prepared for arthrodesis by removing any remaining cartilage and shaping the bone ends to achieve maximum contact and alignment. A [place] dorsal locking plate was then positioned appropriately across the joint. Fixation was initiated with 2.7 mm screws placed distally in the phalanx and 3.5 mm screws proximally in the metatarsal. Care was taken to ensure that the screws did not penetrate the joint space or impinge on any adjacent structures. An additional 3 mm homerun screw was then inserted across the joint for further stabilization. Fluoroscopic imaging was utilized throughout the procedure to confirm appropriate alignment and hardware placement. The joint was positioned in slight dorsiflexion to optimize the functional position of the toe. Following satisfactory fixation, the joint capsule and wound were closed in layers. Capsule with 3-0 Vicryl, subcutaneous tissue with 4-0 Vicryl and skin with 4-0 nylon. Incision was dressed with Adaptic, sterile 4 x 4's, Kerlix and Geovanny wrap followed by application of a cam boot to the right lower extremity. Tourniquet was deflated and a prompt hyperemic response was noted to the distal digits of the right foot. Patient tolerated the procedure and anesthesia well and was transferred to the PACU with vital signs stable and vascular status intact. Following a period of postoperative monitoring she will be discharged home with at-home care instructions, scheduled follow-up and my cell phone number to contact me with any postoperative questions or concerns.
--- NOTE | 2023-03-11 08:48 | W.PM.OPSUD ---
Surgery/Procedure H&P Update DATE OF PROCEDURE: March 11, 2023 DATE H&P PERFORMED: 03/01/23 H&P UPDATE INFORMATION: I have reviewed H&P completed within last 30 days, I have examined patient prior to procedure, No changes to prior documentation and H&P is in [facility] [place] on date indicated PREOP DIAGNOSIS: Left bunion PLANNED PROCEDURE: Operation Date: 03/11/23 10:20 Proposed Procedures p Right first metatarsal phalangeal joint fusion [id number],M20.21,M21.611,M24.571(Right) - Sameer Lares DPM s Tendon Repair Foot(Right) - Sameer Lares DPM
[2023-03-11 09:03] VITALS: BP 178/101; PULSE 75; RESP 18; TEMP 36.7; O2SAT 98
[2023-03-11 09:24] VITALS: BMI 34.4
--- NOTE | 2023-03-11 09:53 | ANES.PREANE2 ---
Pre-Anesthetic Assessment Height/Weight: Height 1.78 m Weight 108.862 kg Temp Pulse Resp BP Pulse Ox O2 Del Method 98.1 F 75 18 178/101 98 Room Air 03/11/23 09:03 03/11/23 09:03 03/11/23 09:03 03/11/23 09:03 03/11/23 09:03 03/11/23 09:12 Preop Diagnosis: Left bunion Operation Date: 03/11/23 10:20 Proposed Procedures p Right first metatarsal phalangeal joint fusion 61218,43051,M20.21,M21.611,M24.571(Right) - Sameer Lares DPM s Tendon Repair Foot(Right) - Sameer Lares DPM Familial anesthetic complications: none Was Beta Jumana taken within 24 hours: Yes Was Clonidine taken within 24 hours: N/A Last intake: Intake Last Liquid Date 03/10/23 Last Liquid Time 17:00 Last Solid Date 03/10/23 Last Solid Time 17:00 Social Tobacco and No alcohol Exam alert, oriented x 3 and regular rate & rhythm Airway Submandibular: within normal limits Cervical ROM: within normal limits Mallampati: Class II Dentition: false Pulmonary Chronic Obstructive Pulmonary Disease CV/HEM Deep Vein Thrombosis and Hypertension Metabolic Diabetes Mellitus, Hyperlipidemia and Morbid Obesity Neuropsych Neuropathy Anesthetic Plan ASA status: 3 Anesthesia: Choice Medications/Allergies Home Medications Medication Instructions Recorded Confirmed Last Taken Type apixaban 5 mg (74 tabs) tablets in See Rx Instructions PO .COMPLEX 06/28/22 03/10/23 03/10/23 Rx a dose pack ([employer] DVT-PE Treat #74 ea 30D Start) furosemide 20 mg tablet 20 mg PO BID 08/19/22 03/10/23 03/10/23 History hydralazine 25 mg tablet 25 mg PO BID 08/19/22 03/10/23 03/10/23 History insulin glargine 100 unit/mL (3 45 unit SUBCUT DAILY 08/19/22 03/10/23 03/11/23 05:30 History mL) subcutaneous pen (Lantus Solostar U-100 Insulin) metformin 1,000 mg tablet 1,000 mg PO BID 08/19/22 03/10/23 03/10/23 History metoprolol tartrate 50 mg tablet 50 mg PO BID 08/19/22 03/10/23 03/10/23 History potassium chloride 10 mEq 10 meq PO DAILY 08/19/22 03/11/23 03/11/23 05:30 History capsule,extended release Owl Boot forefoot relief to the #1 ea 11/30/22 03/01/23 Unknown Rx right sulfamethoxazole 800 1 tab PO BID #14 tabs 11/30/22 03/01/23 Unknown Rx mg-trimethoprim 160 mg tablet (Bactrim DS) mupirocin 2 % topical ointment 1 applic topical BID #15 grams 12/20/22 03/01/23 03/10/23 Rx levofloxacin 750 mg tablet 750 mg PO DAILY #7 tabs 01/20/23 03/01/23 Unknown Rx hydrocodone 5 mg-acetaminophen 325 1 tab PO Q8H PRN pain 7 days #21 03/11/23 Unknown Rx mg tablet tabs Allergies Allergy/AdvReac Type Severity Reaction Status Date / Time glipizide Allergy Unconscious Verified 03/10/23 11:42 Penicillins Allergy ALGY-Swell Verified 03/10/23 11:42 Lip/Tongue/Throat PFSH Anesthesia Medical History DVT (deep venous thrombosis) Varicose veins of both lower extremities Family History Mother CAD (coronary artery disease) Diabetes Sister CAD (coronary artery disease) Cancer Diabetes Hypertension Denies family history of Stroke Social History Smoking and tobacco/nicotine status: current every day tobacco/nicotine user cigarettes Packs smoked per day: 1 Years cigarettes smoked: 45 Alcohol intake: never Substance/Drug Use: never Household members: spouse Housing: House Marital status: Number of children: 3 Pets and animals: Yes Pets & animals: dog(s) Data Anesthesia Cardiac Studies: No Data to Display
[2023-03-11 09:57] LABS: Glucose Point of Care 72 mg/dL (70-110)
[2023-03-11] MEDS: sodium chloride 0.9% 1,000 ML 30 ML IV (09:57)
[2023-03-11] MEDS: vancomycin 1,500 MG/300 ML PIGGYBACK 200 MG IV (10:08)
[2023-03-11] MEDS: BUPivacaine liposome 13.3 mg/mL SDV 10 mL 133 MG INJECTION (10:30)
[2023-03-11] MEDS: BUPivacaine 0.5% INJ 30 mL 20 ML INJECTION (10:30)
[2023-03-11 10:38] LABS: Anion Gap 16.5 (5-19); Blood Urea Nitrogen 27 mg/dL (8-23); Calcium 9.4 mg/dL (8.5-10.5); Carbon Dioxide 24 mmol/L (22-29); Chloride 105 mmol/L (98-107); Glomerular Filtration Rate 50.5 mL/min (90-130); Glucose 73 mg/dL (65-115); Osmolality Calculated 296 mOsm/kg (285-295); Potassium 4.5 mmol/L (3.5-5.1); Sodium 141 mmol/L (136-145)
[2023-03-11 11:20] VITALS: BP 143/77; PULSE 69; RESP 16; TEMP 36.1; O2SAT 93
[2023-03-11 11:30] VITALS: BP 148/78; PULSE 72; RESP 16; O2SAT 92
--- NOTE | 2023-03-11 11:45 | SUR.PHASEII ---
11:45 received patient from PACU staff. blood glucose not checked yet. patient A+OX3. Blood sugar checked 73mg/dL anesthesia informed. IV glucose given.
[2023-03-11] MEDS: dextrose 50% syringe 50 mL 25 ML IVP (11:50)
[2023-03-11 11:57] VITALS: BP 153/79; PULSE 72; RESP 16; TEMP 36.4; O2SAT 93
[2023-03-11] MEDS: ondansetron 2 mg/ML SDV 2 mL 4 MG IVP (12:06)
--- NOTE | 2023-03-11 12:11 | SUR.PHASEII ---
12:05 regular diet served.
[2023-03-11 12:43] VITALS: BP 164/98; PULSE 76; RESP 16; TEMP 36.6; O2SAT 94
--- NOTE | 2023-03-11 12:48 | ANE.PACU2 ---
Inpatient post-anesthesia follow up: Airway intact: Yes Vital signs: Temperature 97.9 F Pulse Rate 76 Respiratory Rate 16 Blood Pressure 164/98 Pulse Oximetry 94 Oxygen Delivery Me thod Room Air Oxygen Flow Rate Fraction of Inspir ed Oxygen Hydration adequate: Yes Nausea and vomiting: No Pain level: 2 Mental status: Baseline
[2023-03-11 12:53] LABS: Glucose Point of Care 116 mg/dL (70-110)
[2023-03-11 12:53] LABS: Glucose Point of Care 73 mg/dL (70-110)
[2023-03-11 13:00] VITALS: BP 146/73; PULSE 78; RESP 16; TEMP 36.7; O2SAT 93
== END 2023-03-11 13:20 | disposition home or self-care (01) ==
PROVIDERS: PCP Nurse Practitioner Family; Visit Provider Podiatrist Foot & Ankle Surgery
PROC: (CPT 28740; principal; 2023-03-11 10:10)
DX: M20.11 Hallux valgus (acquired), right foot (principal); J44.9 Chronic obstructive pulmonary disease, unspecified; I10 Essential (primary) hypertension; Z86.718 Personal history of other venous thrombosis and embolism; E11.40 Type 2 diabetes mellitus with diabetic neuropathy, unspecified; E78.5 Hyperlipidemia, unspecified; E66.01 Morbid (severe) obesity due to excess calories; Z68.34 Body mass index [BMI] 34.0-34.9, adult; Z79.4 Long term (current) use of insulin; F17.210 Nicotine dependence, cigarettes, uncomplicated
CPT/HCPCS: 28750; 36415; 36416; 73620; 76000; 80048; 82962; C1713; C9290; J2250; J2405; J2704; J3370; J3490; J7030

== ENCOUNTER → 2023-03-14 10:40 | Outpatient (BNVA) | payer MEDICARE, SELFPAY | PROVIDERS: PCP Nurse Practitioner Family; Visit Provider Podiatrist Foot & Ankle Surgery | DX: Z51.89 Encounter for other specified aftercare (principal); E11.42 Type 2 diabetes mellitus with diabetic polyneuropathy; M21.611 Bunion of right foot; M21.612 Bunion of left foot; M21.41 Flat foot [pes planus] (acquired), right foot; M21.42 Flat foot [pes planus] (acquired), left foot; Z79.01 Long term (current) use of anticoagulants; Z79.84 Long term (current) use of oral hypoglycemic drugs; Z79.4 Long term (current) use of insulin | CPT/HCPCS: 99024 ==

== ENCOUNTER → 2023-03-23 08:58 | Outpatient (BNVA) | payer MEDICARE, SELFPAY | PROVIDERS: PCP Nurse Practitioner Family; Visit Provider Podiatrist Foot & Ankle Surgery | DX: Z98.890 Other specified postprocedural states (principal); E11.42 Type 2 diabetes mellitus with diabetic polyneuropathy; M21.611 Bunion of right foot; M21.612 Bunion of left foot; M21.41 Flat foot [pes planus] (acquired), right foot; M21.42 Flat foot [pes planus] (acquired), left foot; Z79.84 Long term (current) use of oral hypoglycemic drugs; Z79.4 Long term (current) use of insulin | CPT/HCPCS: 73630; 99024 ==

== ENCOUNTER → 2023-03-29 11:21 | Outpatient (BNVA) | payer MEDICARE, SELFPAY | PROVIDERS: PCP Nurse Practitioner Family; Visit Provider Podiatrist Foot & Ankle Surgery | DX: Z98.890 Other specified postprocedural states (principal); E11.42 Type 2 diabetes mellitus with diabetic polyneuropathy; M21.611 Bunion of right foot; M21.612 Bunion of left foot; M21.41 Flat foot [pes planus] (acquired), right foot; M21.42 Flat foot [pes planus] (acquired), left foot; Z79.01 Long term (current) use of anticoagulants | CPT/HCPCS: 99024 ==

== ENCOUNTER → 2023-04-07 10:13 | Outpatient (BNVA) | payer MEDICARE, SELFPAY | PROVIDERS: PCP Nurse Practitioner Family; Visit Provider Podiatrist Foot & Ankle Surgery | DX: Z98.890 Other specified postprocedural states (principal) | CPT/HCPCS: 73630; 99024 ==

== ENCOUNTER → 2023-04-21 13:29 | Outpatient (BNVA) | payer MEDICARE, SELFPAY | PROVIDERS: PCP Nurse Practitioner Family; Visit Provider Podiatrist Foot & Ankle Surgery | DX: Z98.890 Other specified postprocedural states (principal) | CPT/HCPCS: 73630; 99024 ==

== ENCOUNTER → 2023-05-19 14:20 | Outpatient (BNVA) | payer MEDICARE, SELFPAY | PROVIDERS: PCP Nurse Practitioner Family; Visit Provider Podiatrist Foot & Ankle Surgery | DX: Z98.890 Other specified postprocedural states (principal); I83.93 Asymptomatic varicose veins of bilateral lower extremities; E11.42 Type 2 diabetes mellitus with diabetic polyneuropathy; M21.41 Flat foot [pes planus] (acquired), right foot; M21.42 Flat foot [pes planus] (acquired), left foot; Z86.718 Personal history of other venous thrombosis and embolism; Z79.84 Long term (current) use of oral hypoglycemic drugs; Z79.4 Long term (current) use of insulin | CPT/HCPCS: 73630; 99213 ==

== ENCOUNTER → 2023-07-13 09:21 | Outpatient (BNVA) | payer MEDICARE, SELFPAY | PROVIDERS: PCP Nurse Practitioner Family; Visit Provider Podiatrist Foot & Ankle Surgery | DX: Z98.890 Other specified postprocedural states (principal); I83.93 Asymptomatic varicose veins of bilateral lower extremities; E11.42 Type 2 diabetes mellitus with diabetic polyneuropathy; Z86.718 Personal history of other venous thrombosis and embolism; Z89.422 Acquired absence of other left toe(s); Z79.84 Long term (current) use of oral hypoglycemic drugs; Z79.4 Long term (current) use of insulin | CPT/HCPCS: 73630; 99213 ==

== ENCOUNTER → 2023-09-15 07:58 | Outpatient (BNVA) | payer MEDICARE, SELFPAY | PROVIDERS: PCP Nurse Practitioner Family; Visit Provider Podiatrist Foot & Ankle Surgery | DX: Z98.890 Other specified postprocedural states (principal); E11.42 Type 2 diabetes mellitus with diabetic polyneuropathy; L60.3 Nail dystrophy; L84 Corns and callosities; I83.93 Asymptomatic varicose veins of bilateral lower extremities; M21.41 Flat foot [pes planus] (acquired), right foot; M21.42 Flat foot [pes planus] (acquired), left foot; M96.0 Pseudarthrosis after fusion or arthrodesis; Z79.84 Long term (current) use of oral hypoglycemic drugs; Z79.4 Long term (current) use of insulin | CPT/HCPCS: 11056; 11721; 73630; 99213 ==

== ENCOUNTER 2023-10-28 10:52 | Outpatient (CLI) | payer MEDICARE, SELFPAY ==
--- NOTE | 2023-10-28 11:00 | MM_ITS ---
WS: [id number] SCREENING DIGITAL TOMOSYNTHESIS MAMMOGRAM WITH CAD HISTORY: SCREENING COMPARISON: None available. Bilateral CC and MLO with tomosynthesis views submitted. Synthetic mammography reviewed. Computer aid ed detection analyzed. Breast composition: There are scattered areas of fibroglandular density. No suspicious masses, microc alcifications or architectural distortion. There is several benign calcifications scattered throughou t each breast. MM/[place] [id number] IMPRESSION: BI-RADS: 2-Benign FOLLOW UP: 1 Year Follow-up
== END 2023-10-28 10:53 | disposition home or self-care (01) ==
DX: Z12.31 Encounter for screening mammogram for malignant neoplasm of breast (principal)
CPT/HCPCS: 77063; 77067

== ENCOUNTER → 2023-11-14 09:46 | Outpatient (BNVA) | payer MEDICARE, SELFPAY | PROVIDERS: Visit Provider Podiatrist Foot & Ankle Surgery | DX: M96.0 Pseudarthrosis after fusion or arthrodesis (principal); E11.42 Type 2 diabetes mellitus with diabetic polyneuropathy; L60.3 Nail dystrophy; L84 Corns and callosities; I83.93 Asymptomatic varicose veins of bilateral lower extremities; M21.41 Flat foot [pes planus] (acquired), right foot; M21.42 Flat foot [pes planus] (acquired), left foot; Z98.890 Other specified postprocedural states; Z79.4 Long term (current) use of insulin; Z79.84 Long term (current) use of oral hypoglycemic drugs | CPT/HCPCS: 11056; 11721; 73630; 99213 ==

== ENCOUNTER → 2023-11-23 07:21 | Outpatient (BNVA) | payer MEDICARE, SELFPAY | PROVIDERS: Visit Provider Podiatrist Foot & Ankle Surgery | DX: I83.93 Asymptomatic varicose veins of bilateral lower extremities (principal); E11.42 Type 2 diabetes mellitus with diabetic polyneuropathy; M21.41 Flat foot [pes planus] (acquired), right foot; M21.42 Flat foot [pes planus] (acquired), left foot; L60.3 Nail dystrophy; L84 Corns and callosities; Z98.890 Other specified postprocedural states; M96.0 Pseudarthrosis after fusion or arthrodesis; Z79.4 Long term (current) use of insulin; Z79.84 Long term (current) use of oral hypoglycemic drugs | CPT/HCPCS: 99213 ==

== ENCOUNTER → 2024-01-04 09:51 | Outpatient (BNVA) | payer MEDICARE, SELFPAY | PROVIDERS: Visit Provider Podiatrist Foot & Ankle Surgery | DX: Z98.890 Other specified postprocedural states (principal); M96.0 Pseudarthrosis after fusion or arthrodesis; E11.42 Type 2 diabetes mellitus with diabetic polyneuropathy; L60.3 Nail dystrophy; L84 Corns and callosities; I83.93 Asymptomatic varicose veins of bilateral lower extremities; M21.41 Flat foot [pes planus] (acquired), right foot; M21.42 Flat foot [pes planus] (acquired), left foot; Z79.84 Long term (current) use of oral hypoglycemic drugs; Z79.4 Long term (current) use of insulin | CPT/HCPCS: 73630; 99213 ==

== ENCOUNTER → 2024-02-01 08:09 | Outpatient (BNVA) | payer MEDICARE, SELFPAY | PROVIDERS: Visit Provider Podiatrist Foot & Ankle Surgery | DX: L97.513 Non-pressure chronic ulcer of other part of right foot with necrosis of muscle (principal); E13.621 Other specified diabetes mellitus with foot ulcer; E11.42 Type 2 diabetes mellitus with diabetic polyneuropathy | CPT/HCPCS: 87070; 87075; 87205 ==

== ENCOUNTER → 2024-02-08 09:23 | Outpatient (BNVA) | payer MEDICARE, SELFPAY | PROVIDERS: Visit Provider Podiatrist Foot & Ankle Surgery | DX: I83.93 Asymptomatic varicose veins of bilateral lower extremities (principal); E11.42 Type 2 diabetes mellitus with diabetic polyneuropathy; M21.41 Flat foot [pes planus] (acquired), right foot; M21.42 Flat foot [pes planus] (acquired), left foot; L60.3 Nail dystrophy; L84 Corns and callosities; Z98.890 Other specified postprocedural states; M96.0 Pseudarthrosis after fusion or arthrodesis; L97.513 Non-pressure chronic ulcer of other part of right foot with necrosis of muscle; E11.621 Type 2 diabetes mellitus with foot ulcer; Z79.84 Long term (current) use of oral hypoglycemic drugs; Z79.4 Long term (current) use of insulin | CPT/HCPCS: 29445 ==

== ENCOUNTER → 2024-02-15 13:13 | Outpatient (BNVA) | payer MEDICARE, SELFPAY | PROVIDERS: Visit Provider Podiatrist Foot & Ankle Surgery | DX: I83.93 Asymptomatic varicose veins of bilateral lower extremities (principal); E11.42 Type 2 diabetes mellitus with diabetic polyneuropathy; M21.41 Flat foot [pes planus] (acquired), right foot; M21.42 Flat foot [pes planus] (acquired), left foot; M96.0 Pseudarthrosis after fusion or arthrodesis; L97.513 Non-pressure chronic ulcer of other part of right foot with necrosis of muscle; E11.621 Type 2 diabetes mellitus with foot ulcer; Z79.84 Long term (current) use of oral hypoglycemic drugs; Z79.4 Long term (current) use of insulin | CPT/HCPCS: 99213 ==

== ENCOUNTER → 2024-03-05 09:25 | Outpatient (BNVA) | payer MEDICARE, SELFPAY | PROVIDERS: Visit Provider Podiatrist Foot & Ankle Surgery | DX: I83.93 Asymptomatic varicose veins of bilateral lower extremities (principal); E11.42 Type 2 diabetes mellitus with diabetic polyneuropathy; L97.512 Non-pressure chronic ulcer of other part of right foot with fat layer exposed; L60.3 Nail dystrophy; E11.621 Type 2 diabetes mellitus with foot ulcer; Z89.422 Acquired absence of other left toe(s); Z79.84 Long term (current) use of oral hypoglycemic drugs; Z79.4 Long term (current) use of insulin | CPT/HCPCS: 11721; 29445 ==

== ENCOUNTER → 2024-03-14 08:06 | Outpatient (BNVA) | payer MEDICARE, SELFPAY | PROVIDERS: Visit Provider Podiatrist Foot & Ankle Surgery | DX: T84.84XA Pain due to internal orthopedic prosthetic devices, implants and grafts, initial encounter (principal); L97.512 Non-pressure chronic ulcer of other part of right foot with fat layer exposed; I83.93 Asymptomatic varicose veins of bilateral lower extremities; E11.42 Type 2 diabetes mellitus with diabetic polyneuropathy; S98.132A Complete traumatic amputation of one left lesser toe, initial encounter; Y79.2 Prosthetic and other implants, materials and accessory orthopedic devices associated with adverse incidents; E11.621 Type 2 diabetes mellitus with foot ulcer; Z89.422 Acquired absence of other left toe(s); Z79.4 Long term (current) use of insulin; Z79.84 Long term (current) use of oral hypoglycemic drugs | CPT/HCPCS: 99214 ==

== ENCOUNTER 2024-03-22 19:03 | Observation (INO) | payer MEDICARE, SELFPAY ==
[2024-03-22] VITALS (27 sets, daily range): BP systolic 146–194; BP diastolic 77–111; PULSE 91–107; RESP 16–22; TEMP 36.1–37; O2SAT 90–98; BMI 35.9; BMI 34.9
--- NOTE | 2024-03-22 | XR_ITS ---
WS: [id number] C-ARM RADIOGRAPHS RIGHT FOOT; 2 IMAGES HISTORY: CLARISSA JAMIL COMPARISON: 03/11/2023 Intraoperative imaging during RIGHT foot procedure. Intraoperative imaging during revision of the neris te and screw fixation at the first metatarsophalangeal joint. XR/XR foot RT min 3V* [id number] IMPRESSION: Intraoperative imaging during procedure at the first metatarsophalangeal joint plate and screw fixation.
[2024-03-22 11:11] LABS: Glucose Point of Care 100 mg/dL (70-110)
[2024-03-22] MEDS: sodium chloride 0.9% 1,000 ML 30 ML IV (11:11)
--- NOTE | 2024-03-22 11:45 | ANES.PREANE2 ---
Pre-Anesthetic Assessment Height/Weight: Height 1.78 m Weight 113.398 kg Temp Pulse Resp BP Pulse Ox O2 Del Method 97.0 F L 92 18 161/94 97 Room Air 03/22/24 10:41 03/22/24 10:41 03/22/24 10:41 03/22/24 11:20 03/22/24 10:41 03/22/24 10:41 Preop Diagnosis: Right bunion Operation Date: 03/22/24 12:00 Proposed Procedures p Deep hardware removal right foot(Right) - Sameer Lares DPM s Resection of nonunion with right first metatarsal phalangeal joint fusion(Right) - Sameer Lares DPM s Hallux Interphalangeal Joint Fusion with Bone autograft(Right) - Sameer Lares DPM Familial anesthetic complications: None Was Beta Jumana taken within 24 hours: N/A Was Clonidine taken within 24 hours: N/A Last intake: Intake Last Liquid Date 03/21/24 Last Liquid Time 19:00 Last Solid Date 03/21/24 Last Solid Time 17:00 Social Tobacco and No alcohol Exam alert, oriented x 3, clear to auscultation bilaterally and regular rate & rhythm Airway Mallampati: Class II Dentition: full CV/HEM Atrial Fibrillation, Deep Vein Thrombosis and Hypertension Metabolic Diabetes Mellitus Anesthetic Plan ASA status: 3 Anesthesia: General Risk of > 500 ml blood loss (7ml/kg in children): No Medications/Allergies Home Medications Medication Instructions Recorded Confirmed Last Taken Type furosemide 20 mg tablet 20 mg PO BID 08/19/22 03/22/24 03/21/24 History hydralazine 25 mg tablet 25 mg PO BID 08/19/22 03/22/24 03/22/24 History insulin glargine 100 unit/mL (3 45 unit SUBCUT DAILY 08/19/22 03/22/24 03/21/24 History mL) subcutaneous pen (Lantus Solostar U-100 Insulin) metformin 1,000 mg tablet 1,000 mg PO BID 08/19/22 03/22/24 03/21/24 History metoprolol tartrate 50 mg tablet 50 mg PO BID 08/19/22 03/22/24 03/21/24 History Owl Boot forefoot relief to the #1 ea 11/30/22 03/14/24 Unknown Rx right Diabetic shoes with custom molded #1 ea 05/19/23 03/14/24 Unknown Rx insoles SOLE supports #1 ea 01/04/24 03/14/24 Unknown Rx apixaban 5 mg tablet (Eliquis) 5 mg PO BID 03/21/24 03/22/24 03/16/24 History lisinopril 20 mg tablet 20 mg PO DAILY 03/21/24 03/22/24 03/21/24 History hydrocodone 7.5 mg-acetaminophen 1 tab PO Q6H PRN pain 7 days #28 03/22/24 Unknown Rx 325 mg tablet tabs Allergies Allergy/AdvReac Type Severity Reaction Status Date / Time glipizide Allergy Unconscious Verified 03/22/24 10:45 Penicillins Allergy ALGY-Swell Verified 03/22/24 10:45 Lip/Tongue/Throat Current Medications Generic Name Dose Route Start Last Admin Trade Name Freq PRN Reason Stop Dose Admin Sodium Chloride 1,000 mls @ 30 mls/hr 03/22/24 11:00 03/22/24 11:11 Sodium Chloride 0.9% IV 03/23/24 10:59 30 mls/hr .Q24H NANCY Administration PFSH Anesthesia Medical History Varicose veins of both lower extremities DVT (deep venous thrombosis) Family History Mother CAD (coronary artery disease) Diabetes Sister CAD (coronary artery disease) Cancer Diabetes Hypertension Denies family history of Stroke Social History Smoking and tobacco/nicotine status: current every day tobacco/nicotine user cigarettes Packs smoked per day: 1 Years cigarettes smoked: 45 Alcohol intake: never Substance/Drug Use: never Household members: spouse Housing: House Marital status: Number of children: 3 Pets and animals: Yes Pets & animals: dog(s) Data Anesthesia Cardiac Studies: No Data to Display
--- NOTE | 2024-03-22 11:53 | P.HPUD_ITS ---
Surgery/Procedure H&P Update DATE OF PROCEDURE: March 22, 2024 DATE H&P PERFORMED: 03/11/24 H&P UPDATE INFORMATION: I have reviewed H&P completed within last 30 days, I have examined patient prior to procedure, No changes to prior documentation and H[place] is in [facility] [place] indicated PREOP DIAGNOSIS: Right bunion PLANNED PROCEDURE: Operation Date: 03/22/24 12:00 Proposed Procedures p Deep hardware removal right foot(Right) - Sameer Lares DPM s Resection of nonunion with right first metatarsal phalangeal joint fusion(Right) - Sameer Lares DPM s Hallux Interphalangeal Joint Fusion with Bone autograft(Right) - Sameer Lares DPM
[2024-03-22] MEDS: clindamycin 600 MG/50 ML PREMIX 100 MG IV (12:15)
[2024-03-22] MEDS: BUPivacaine 0.5% INJ 30 mL 15 ML INJECTION (12:25)
[2024-03-22] MEDS: lidocaine 1% 10 ML INJ 15 ML XX (12:25)
--- NOTE | 2024-03-22 13:56 | W.PM.BPON ---
Date of Procedure: 07/15/23 Surgeon: Sameer Lares DPM Bilingual Customer Service(s): Jason Procedure(s) performed: Deep hardware removal and first metatarsal for joint arthrodesis with hallux interphalangeal joint arthrodesis all right foot Findings of the procedure(s): None Estimated blood loss: 2 mL Specimen(s) removed: None Post-operative diagnosis: Nonunion, painful hardware, hallux valgus all right foot 109-minute tourniquet time, 2 mL of blood loss, no complications
--- NOTE | 2024-03-22 13:57 | P.OP_ITS ---
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 CPT code 09683 2) resection of nonunion with right first metatarsal phalangeal joint fusion. CPT code 04558 3) right hallux interphalangeal joint fusion. CPT code 01547 Implants: Norris 28 first MTP plate long with 3.5 mm locking screws proximally and 3.5 mm nonlocking screw proximally, 2.7 mm locking screws distally, 2-0 Vicryl, 4-0 Vicryl, 4-0 nylon Specimens removed/disposition: No micro specimens Pathology: No pathology specimens Surgeon: Sameer Lares DPM Entry Level Web Developer: Jason Estimated blood loss: 2 109 IV fluids: See intraoperative documentation Urine output: See intraoperative documentation Complications: No complications Brief History: 63-year-old female with a history of right first metatarsophalangeal joint issues presenting with the need for hardware removal and fusion surgery. The patient continues to experience sequela affecting lifestyle and mobility post- initial surgery. The anatomical region shows no clear signs of infection, but current structural complications necessitate further surgical intervention. Anticoagulation treatment with Eliquis complicates the surgical planning. Nonunion at arthrodesis site right first metatarsal phalangeal joint, recurrent hallux valgus and reoccurring ulceration due to abnormal mechanics, bony prominence due to underlying deformity in the presence of diabetes with peripheral neuropathy have been risk factors and reoccurring ulceration at the plantar medial aspect of the right first metatarsal phalangeal joint. The plan is to proceed with hardware removal and fusion of the right first metatarsophalangeal joint. Preoperative considerations include timing around the patient's anticoagulation therapy, specifically discontinuing Eliquis five days prior to surgery to reduce bleeding risk. Patient consent will be obtained, detailing risks, benefits, and alternatives, especially concerning the procedural outcomes and potential impact on quality of life. I reviewed at length with the patient, the risks, potential complications, benefits, alternatives, expectations, and typical outcomes associated with the surgery. The risks and potential complications were explained in detail, including but not limited to infection, wound dehiscence or soft tissue complications, bleeding and hematoma, chronic edema, neuritis or nerve damage producing numbness or chronic pain, CRPS, failure to relieve pain or worsening pain, thick / painful / unsightly scar, limited motion / stiffness, malposition, delayed union, malunion, or nonunion, fracture, reaction to implants, anesthetic complications, venous thromboembolism, and deformity recurrence. I discussed th e notion of no regrets with the patient as it pertains to complications and outcomes. The patient seemed to understand the nature of the proposed care and required convalescence. They asked appropriate questions, answered to their satisfaction. They are aware no guarantees can be made as to a satisfactory outcome and they understand there may be other possible unforeseen complications or outcomes not listed here that will be treated accordingly if they arise. There were no written or implied guarantees given to the patient. They gave informed consent to proceed. Procedure: Under mild sedation the patient was brought to the operating room and placed onto the operating table in supine position. A timeout was performed. Anesthesia was then administered by the anesthesia service. Local anesthesia was injected by myself consisting of 30 cc of one-to-one mixture 1% lidocaine and 0.5% Marcaine plain in a right male block fashion. A well-padded pneumatic tourniquet was applied to the right ankle. The right lower extremity was scrubbed, prepped and draped utilizing normal aseptic technique. The right foot was exanguinated with an Esmarch bandage and tourniquet inflated to 250 mmHg. Attention was directed to the dorsal medial aspect of the right first metatarsal phalangeal joint where a previous incision was noted directly over the previous cicatrix which was well-healed and new incision was performed in a linear fashion with a #15 blade through skin with dissection carried down through subcutaneous tissue to the layer of hardware at the dorsal aspect of the right first metatarsal phalangeal joint utilizing sharp and blunt technique. Care was taken to retract and preserve neurovascular and tendinous structures. All bleed ers were ligated and cauterized as necessary. Previous hardware was noted to be intact without failure however there was an obvious nonunion at the right first metatarsal phalangeal joint the 3 mm oblique homerun screw was removed as well as dorsal locking screws and nonlocking screws of the dorsal plate total of 6 plate screws and 1 interfrag screw with a total of 7 removed and the plate without failure these were passed from the operative field. The incision was irrigated with copious amounts of sterile saline solution. Attention was directed to the nonunion section of the first metatarsal phalangeal joint which was transected perpendicular to the longitudinal axis of the first metatarsal and proximal phalanx with a sagittal saw and the bone was resected in preparation for a bone block arthrodesis both the base of the proximal phalanx and the head of the first metatarsal were resected to healthy viable appearing bone that had bleeding and viable density and appearance. The incision was irrigated saline solution then the base of the proximal phalanx and head of the first metatarsal was prepped for arthrodesis utilizing subchondral fenestrating drill bit the first metatarsal phalangeal joint was then aligned with slight valgus slight dorsiflexion and neutral in the frontal plane and fixated with a new longer dorsal locking plate provided by Charlee English with 3.5 millimeter screws proximally and 2.7 millimeter screws distally with excellent bony apposition and compression noted in all 3 planes utilizing intraoperative mini C arm in AP, oblique and lateral view. Attention was then directed to the dorsal aspect of the right hallux interphalangeal joint, there was a residual hallux valgus deformity with apex of the deformity at the hallux in a phalange joint with the distal phalanx deviating laterally. A linear incision was extended through skin with a #15 blade with dissection carried down through subcutaneous tissue to the layer of the joint capsule of the hallux interphalangeal joint of the right foot utilizing sharp and blunt technique. Care was taken to retract and preserve neurovascular and tendinous structures. All bleeders were ligated and cauterized as necessary. A transverse tenotomy was performed of the extensor hallucis tendons and the joint was then accessed for arthrodesis and corrective alignment this was achieved utilizing a sagittal saw transecting the base of the distal phalanx with care taken to take more base medially as to allow for reduction of the transverse plane deformity deviating laterally as well as the head of the proximal phalanx being transected with more taken medially once again to address the transverse plane deformity the incision was irrigated with saline solution, the base of the distal phalanx and head of the proximal phalanx were fenestrated with a subchondral drill bit and brought into apposition utilizing soft tissue reapproximating the dorsal capsule and extensor hallucis tendons utilizing 4-0 Vicryl. Incision was then closed with subcutaneous tissue reapproximated 4-0 Vicryl and skin with 4-0 nylon. The incision site was then dressed with Adaptic, sterile 4 x 4's, Kerlix and application of a well-padded short leg cast with ankle joint in neutral position with adequate space to offload bony prominences of the foot and ankle. The tourniquet was then deflated and a prompt hyperemic response was noted to all digits of the right foot including the hallux. Patient tolerated the procedure and anesthesia well and was transferred to the PACU with vital signs stable and vascular status intact. Following a period of postoperative monitoring she will be discharged home without home care instructions and scheduled follow-up.
--- NOTE | 2024-03-22 14:03 | ECG_ITS ---
[facility] Test Date: 2024-03-22 Pat Name: Roxanne Jaeger Department: Room: Gender: Female Entry Level Receptionist: : 1960 Requested By: Katie Zuluaga Order Number: [id number] Evelyne MD: Lb Vaughan M.D. Measurements Intervals [place] Rate: 97 P: 53 RI: 216 QRS: -21 QRSD: 111 T: 62 QT: 377 QTc: 481 Interpretive Statements SINUS RHYTHM WITH FIRST DEGREE AV BLOCK POSSIBLE LEFT ATRIAL ENLARGEMENT [-0.1mV P-WAVE IN V1/V2] POSSIBLE ANTERIOR MYOCARDIAL INFARCTION , OF INDETERMINATE AGE [30 ms Q WAVE IN V3/V4, OR R < 0.2 mV IN V4] Compared to ECG 06/28/2022 09:33:10 No significant changes Electronically Signed On 03-24-2024 10:29:25 NUCLEAR PHYSICIAN by Lb Vaughan M.D. [email or web address]
[2024-03-22] MEDS: labetalol 5 mg/mL SDV 20mL IVP ×2 (14:10→14:37)
[2024-03-22 15:22] LABS: Troponin(5th) Baseline 22 ng/L (0-10)
--- NOTE | 2024-03-22 15:33 | PM.CONSULT ---
Providers/Reason For Consult Consulting Physician/Specialty*: Dr Marilyn Quijano/ Medicine Reason for Consult*: Chest pain, shortness of breath and palpitation Requesting Physician: Dr Lares/podiatry Attending Physician: Sameer Lares DPM Primary Care Provider: Valeria Menard RN History of Present Illness History of Present Illness 63 y/o female with past medical history diabetes mellitus, hypertension, DVT on chronic anticoagulation was found to have chest pain, palpitation and shortness of breath after ankle surgery. Medicine consulted for above symptoms. Initial EKG reviewed was sinus rhythm at 97 bpm with first-degree heart block, no acute ST-T changes. Review of Systems General: Reports: 10 or more systems reviewed and unremarkable except in HPI and below Medications/Allergies Home Medications Medication Instructions Recorded Confirmed Last Taken Type furosemide 20 mg tablet 20 mg PO BID 08/19/22 03/22/24 03/21/24 History hydralazine 25 mg tablet 25 mg PO BID 08/19/22 03/22/24 03/22/24 History insulin glargine 100 unit/mL (3 45 unit SUBCUT DAILY 08/19/22 03/22/24 03/21/24 History mL) subcutaneous pen (Lantus Solostar U-100 Insulin) metformin 1,000 mg tablet 1,000 mg PO BID 08/19/22 03/22/24 03/21/24 History metoprolol tartrate 50 mg tablet 50 mg PO BID 08/19/22 03/22/24 03/21/24 History Owl Boot forefoot relief to the #1 ea 11/30/22 03/14/24 Unknown Rx right Diabetic shoes with custom molded #1 ea 05/19/23 03/14/24 Unknown Rx insoles SOLE supports #1 ea 01/04/24 03/14/24 Unknown Rx apixaban 5 mg tablet (Eliquis) 5 mg PO BID 03/21/24 03/22/24 03/16/24 History lisinopril 20 mg tablet 20 mg PO DAILY 03/21/24 03/22/24 03/21/24 History hydrocodone 7.5 mg-acetaminophen 1 tab PO Q6H PRN pain 7 days #28 03/22/24 Unknown Rx 325 mg tablet tabs Allergies Allergy/AdvReac Type Severity Reaction Status Date / Time glipizide Allergy Unconscious Verified 03/22/24 10:45 Penicillins Allergy ALGY-Swell Verified 03/22/24 10:45 Lip/Tongue/Throat Current Medications Generic Name Dose Route Start Last Admin Trade Name Adelita PRN Reason Stop Dose Admin Sodium Chloride 1,000 mls @ 30 mls/hr 03/22/24 11:00 03/22/24 11:11 Sodium Chloride 0.9% IV 03/23/24 10:59 30 mls/hr .Q24H NANCY Administration PFSH Acute PFSH: Medical History Varicose veins of both lower extremities DVT (deep venous thrombosis) Family History Mother CAD (coronary artery disease) Diabetes Sister CAD (coronary artery disease) Cancer Diabetes Hypertension Denies family history of Stroke Social History Smoking and tobacco/nicotine status: current every day tobacco/nicotine user cigarettes Packs smoked per day: 1 Years cigarettes smoked: 45 Alcohol intake: never Substance/Drug Use: never Household members: spouse Housing: House Marital status: Number of children: 3 Pets and animals: Yes Pets & animals: dog(s) Vitals/I&O/Wt Last Vital Signs Temp 97.8 F 03/22/24 15:19 Pulse 96 03/22/24 15:30 Resp 18 03/22/24 15:30 BP 168/88 03/22/24 15:30 Pulse Ox 92 03/22/24 15:30 O2 Del Method Nasal Cannula 03/22/24 15:30 O2 Flow Rate 2 03/22/24 15:30 03/22/24 03/22/24 03/22/24 06:59 14:59 22:59 Intake Total 50 / 50 Output Total 2 / 2 Balance 48 / 48 Weight last 48 hrs Weight 113.398 kg Physical Exam Narrative: AAOx3, not in acute distress chest CTA CVS S1S2 normal Abd normal Ext no edema noted. A&P Assessment and plan (1) Chest pain: Plan 63 y/o female with past medical history diabetes mellitus, hypertension, DVT on chronic anticoagulation was found to have chest pain, palpitation and shortness of breath after ankle surgery. Medicine consulted for above symptoms. She is s/p deep hardware removal and first metatarsal for joint arthrodesis with hallux interphalangeal joint arthrodesis all right foot EKG at that time reviewed, showed sinus rhythm at 97 bpm with first-degree AV block but no acute ST-T changes. Will rule out ACS-baseline troponins 22, 2-hour troponins trending down to 20 Given history of hypertension and diabetes Would recommend admission for observation and cardiac monitoring overnight Repeat EKG as per primary team unchanged Also follow 6-hour troponins. Continue RN DOCUMENTATION SPECIALIST medications Lasix, hydralazine, insulin glargine, metformin, metoprolol and potassium chloride Continue RN DOCUMENTATION SPECIALIST Eliquis as per primary team recommendations. Consult Attestations Medical Necessity Statement: Need hospitalization/observation for workup for ACS and cardiac monitoring. Time Spent in Patient Care: 35 minutes Coding Level of Care Code Acute Code for Chg Fwd Diagnoses Chest pain R07.9 Time Spent (min) 35
--- NOTE | 2024-03-22 16:57 | ECG_ITS ---
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 Measurements Intervals [address] Rate: 101 P: 50 SD: 209 QRS: -23 QRSD: 107 T: 53 QT: 367 QTc: 476 Interpretive Statements SINUS TACHYCARDIA POSSIBLE LEFT ATRIAL ENLARGEMENT [-0.1mV P-WAVE IN V1/V2] POSSIBLE ANTERIOR MYOCARDIAL INFARCTION , OF INDETERMINATE AGE [30 ms Q WAVE IN V3/V4, OR R < 0.2 mV IN V4] Compared to ECG 03/22/2024 14:09:02 Sinus rhythm no longer present First degree AV block no longer present Myocardial infarct finding still present Electronically Signed On 03-24-2024 10:27:36 MIXER OPERATOR TABLETS by Lb Vaughan M.D. [id number]
[2024-03-22 17:30] LABS: Troponin 5 2HR 20.15 ng/L (0-10); Troponin 5 2HR Delta -1.85 ABS# (0-10)
--- NOTE | 2024-03-22 18:11 | PC.NURSE ---
Discharge - Patient given discharge instructions, verbalized understanding and signed discharge. Upon leaving the room, signee received a phone call from Dr. Zuluaga stating that the hospitalist would like to admit patient. Patient informed.
[2024-03-22 18:14] LABS: Glucose Point of Care 183 mg/dL (70-110)
--- NOTE | 2024-03-22 18:32 | PC.NURSE ---
Transfer to [facility] Patient taken to [facility] 111-2 with all personal belongings. at bedside.
--- NOTE | 2024-03-22 19:07 | PC.NURSE ---
patient received from outpatient surgery due to chest pain. Patient is able to bare weight on heel only on right foot.
[2024-03-22 20:54] LABS: Glucose Point of Care 482 mg/dL (70-110)
[2024-03-22] MEDS: insulin lispro 100 unit/1 mL SUBCUT (21:29)
[2024-03-22] MEDS: metoprolol tartrate 50 mg Tablet PO (21:29)
--- NOTE | 2024-03-22 22:00 | ANE.PACU2 ---
Inpatient post-anesthesia follow up: Airway intact: Yes Vital signs: Temperature 98.3 F Pulse Rate 89 Respiratory Rate 28 Blood Pressure 158/87 Pulse Oximetry 93 Oxygen Delivery Me thod Room Air Oxygen Flow Rate 2 Fraction of Inspir ed Oxygen Hydration adequate: Yes Nausea and vomiting: No Pain level: 1 Mental status: Baseline Additional Comments: admitted overnight for observation after awakening with my heart feels nervous, lightheaded and shortness of breath in setting of troponins of 22
[2024-03-23 00:17] VITALS: BP 144/83; PULSE 98; RESP 22; TEMP 37; O2SAT 92
[2024-03-23 04:27] VITALS: BP 158/87; PULSE 88; RESP 28; TEMP 36.8; O2SAT 93
[2024-03-23 04:51] LABS: Hematocrit 38.3 % (36-47); Mean Corpuscular HGB Conc 31.9 g/dL (30-55); Mean Corpuscular Hemoglobin 29.8 pg (27-33); Mean Corpuscular Volume 93.6 fl (85-98); Mean Platelet Volume 11.4 fL (7.4-10.4); Platelet Count 213 10^3/cmm (157-399); Red Blood Count 4.09 10^6/uL (3.85-5.65); Red Cell Distribution Width 14.4 % (12.1-15.1); White Blood Count 12.68 10^3/uL (3.29-11.43)
[2024-03-23 05:14] LABS: Anion Gap 16.4 (5-19); Blood Urea Nitrogen 22 mg/dL (8-23); Calcium 8.5 mg/dL (8.5-10.5); Carbon Dioxide 22 mmol/L (22-29); Chloride 102 mmol/L (98-107); Creatinine Clr Calc Pharmacy 60.3985; Glomerular Filtration Rate 41.5 mL/min (90-130); Glucose 337 mg/dL (65-115); Osmolality Calculated 299 mOsm/kg (285-295); Potassium 4.4 mmol/L (3.5-5.1); Sodium 136 mmol/L (136-145)
[2024-03-23 05:28] VITALS: BMI 34.9
[2024-03-23 05:34] LABS: Absolute Segmented Neutrophil 10.7 10/cmm (1.6-7.1); Lymphocytes 11 %; Monocytes Absolute 0.6 10^3/cmm (0.1-0.6); Segmented Neutrophils 84 %; Total Cells Counted 100 (0-100)
[2024-03-23 05:35] LABS: Eosinophils 0 %; Platelet Estimate Normal (Normal)
[2024-03-23 05:56] VITALS: PULSE 89
[2024-03-23 06:59] LABS: Glucose Point of Care 284 mg/dL (70-110)
[2024-03-23 07:37] LABS: Troponin T (5th) Once 28 ng/L (0-10)
[2024-03-23 07:54] VITALS: BP 152/86; PULSE 90; RESP 24; TEMP 36.9; O2SAT 93
[2024-03-23] MEDS: insulin lispro 100 unit/1 mL SUBCUT (08:10)
[2024-03-23] MEDS: metoprolol tartrate 50 mg Tablet PO (08:11)
[2024-03-23] MEDS: lisinopril 20 mg Tablet PO (08:11)
[2024-03-23] MEDS: hyDRALAzine 25 mg Tablet PO (08:12)
[2024-03-23] MEDS: FUROsemide 20 mg Tablet PO (08:12)
[2024-03-23] MEDS: insulin glargine 100 units/1 mL 36 UNIT SUBCUT (08:14)
[2024-03-23 09:19] VITALS: BP 152/86; PULSE 90; RESP 17; O2SAT 93
[2024-03-23 09:21] VITALS: BP 152/86; PULSE 90; RESP 17; TEMP 36.9; O2SAT 93
--- NOTE | 2024-03-23 11:10 | PC.NURSE ---
discharge instructions given and explained.pt verb understanding of instructions.discharged via w/c to exit at 1045.spouse to drive pt home
== END 2024-03-23 10:45 | disposition home or self-care (01) ==
LOC: CSU 19:04
PROVIDERS: Anesthesiology; Internal Medicine; Podiatrist Foot & Ankle Surgery; Admitting Provider Internal Medicine; Visit Provider Internal Medicine
PROC: (CPT 20680; principal; 2024-03-22 12:00)
PROC: (CPT 28140; 2024-03-22 12:00)
PROC: (CPT 28755; 2024-03-22 12:00)
DX: L97.512 Non-pressure chronic ulcer of other part of right foot with fat layer exposed (principal); S98.132A Complete traumatic amputation of one left lesser toe, initial encounter; X58.XXXA Exposure to other specified factors, initial encounter; T84.84XA Pain due to internal orthopedic prosthetic devices, implants and grafts, initial encounter; M21.611 Bunion of right foot; M96.0 Pseudarthrosis after fusion or arthrodesis; M20.40 Other hammer toe(s) (acquired), unspecified foot; M20.31 Hallux varus (acquired), right foot; E11.9 Type 2 diabetes mellitus without complications; I10 Essential (primary) hypertension; Z86.718 Personal history of other venous thrombosis and embolism; Z79.01 Long term (current) use of anticoagulants; Z79.4 Long term (current) use of insulin; F17.210 Nicotine dependence, cigarettes, uncomplicated; I48.91 Unspecified atrial fibrillation
CPT/HCPCS: 20680; 28750; 28755; 36415; 36416; 73630; 76000; 80048; 82962; 84484; 85007; 85027; 93005; 96372; C1713; G0378; J1100; J1815; J2250; J2405; J3010; J3490; J7030

== ENCOUNTER → 2024-03-28 10:03 | Outpatient (BNVA) | payer MEDICARE, SELFPAY | PROVIDERS: Visit Provider Podiatrist Foot & Ankle Surgery | DX: Z98.890 Other specified postprocedural states (principal) | CPT/HCPCS: 29405; 73630 ==

== ENCOUNTER → 2024-04-05 13:25 | Outpatient (BNVA) | payer MEDICARE, SELFPAY | PROVIDERS: Visit Provider Podiatrist Foot & Ankle Surgery | DX: Z98.890 Other specified postprocedural states (principal) | CPT/HCPCS: 73630; 99024 ==

== ENCOUNTER → 2024-04-19 12:56 | Outpatient (BNVA) | payer MEDICARE, SELFPAY | PROVIDERS: Visit Provider Podiatrist Foot & Ankle Surgery | DX: Z98.890 Other specified postprocedural states (principal) | CPT/HCPCS: 73630; 99024 ==

== ENCOUNTER → 2024-05-03 14:31 | Outpatient (BNVA) | payer MEDICARE, SELFPAY | PROVIDERS: Visit Provider Podiatrist Foot & Ankle Surgery | DX: Z98.890 Other specified postprocedural states (principal) | CPT/HCPCS: 73630; 99024 ==

== ENCOUNTER → 2024-05-24 12:41 | Outpatient (BNVA) | payer MEDICARE, SELFPAY | PROVIDERS: Visit Provider Podiatrist Foot & Ankle Surgery | DX: Z98.890 Other specified postprocedural states (principal) | CPT/HCPCS: 73630; 99024 ==

== ENCOUNTER → 2024-06-21 14:01 | Outpatient (BNVA) | payer MEDICARE, SELFPAY | PROVIDERS: Visit Provider Podiatrist Foot & Ankle Surgery | DX: Z98.890 Other specified postprocedural states (principal) | CPT/HCPCS: 73630; 99024 ==

== ENCOUNTER → 2024-08-16 14:02 | Outpatient (BNVA) | payer MEDICARE, SELFPAY | PROVIDERS: Visit Provider Podiatrist Foot & Ankle Surgery | DX: Z98.890 Other specified postprocedural states (principal); E11.42 Type 2 diabetes mellitus with diabetic polyneuropathy; L60.3 Nail dystrophy; L84 Corns and callosities; Z79.84 Long term (current) use of oral hypoglycemic drugs; Z79.4 Long term (current) use of insulin | CPT/HCPCS: 73630; 99213 ==

== ENCOUNTER → 2024-10-31 11:27 | Outpatient (BNVA) | payer MEDICARE, SELFPAY | PROVIDERS: PCP Nurse Practitioner Family; Visit Provider Podiatrist Foot & Ankle Surgery | DX: E11.8 Type 2 diabetes mellitus with unspecified complications (principal); L60.3 Nail dystrophy; E11.42 Type 2 diabetes mellitus with diabetic polyneuropathy; L97.522 Non-pressure chronic ulcer of other part of left foot with fat layer exposed; E11.621 Type 2 diabetes mellitus with foot ulcer; Z79.84 Long term (current) use of oral hypoglycemic drugs; Z79.4 Long term (current) use of insulin | CPT/HCPCS: 11042 ==

== ENCOUNTER → 2024-11-19 11:28 | Outpatient (BNVA) | payer MEDICARE, SELFPAY | PROVIDERS: PCP Nurse Practitioner Family; Visit Provider Podiatrist Foot & Ankle Surgery | DX: L60.3 Nail dystrophy (principal); E11.42 Type 2 diabetes mellitus with diabetic polyneuropathy; E11.621 Type 2 diabetes mellitus with foot ulcer; L97.522 Non-pressure chronic ulcer of other part of left foot with fat layer exposed; Z79.4 Long term (current) use of insulin; Z79.84 Long term (current) use of oral hypoglycemic drugs | CPT/HCPCS: 99213 ==

== ENCOUNTER → 2024-12-03 09:20 | Outpatient (BNVA) | payer MEDICARE, SELFPAY | PROVIDERS: PCP Nurse Practitioner Family; Visit Provider Podiatrist Foot & Ankle Surgery | DX: L60.3 Nail dystrophy (principal); E11.42 Type 2 diabetes mellitus with diabetic polyneuropathy; E11.621 Type 2 diabetes mellitus with foot ulcer; L97.522 Non-pressure chronic ulcer of other part of left foot with fat layer exposed; Z79.84 Long term (current) use of oral hypoglycemic drugs; Z79.4 Long term (current) use of insulin | CPT/HCPCS: 99213 ==

== ENCOUNTER → 2024-12-17 09:40 | Outpatient (BNVA) | payer MEDICARE, SELFPAY | PROVIDERS: PCP Nurse Practitioner Family; Visit Provider Podiatrist Foot & Ankle Surgery | DX: E11.621 Type 2 diabetes mellitus with foot ulcer (principal); L97.522 Non-pressure chronic ulcer of other part of left foot with fat layer exposed; L60.3 Nail dystrophy; E11.42 Type 2 diabetes mellitus with diabetic polyneuropathy; Z79.84 Long term (current) use of oral hypoglycemic drugs; Z79.4 Long term (current) use of insulin | CPT/HCPCS: 99204; 99213 ==

== ENCOUNTER → 2025-01-02 10:37 | Outpatient (BNVA) | payer MEDICARE, SELFPAY | PROVIDERS: PCP Nurse Practitioner Family; Visit Provider Podiatrist Foot & Ankle Surgery | DX: E11.42 Type 2 diabetes mellitus with diabetic polyneuropathy (principal); E11.621 Type 2 diabetes mellitus with foot ulcer; L97.522 Non-pressure chronic ulcer of other part of left foot with fat layer exposed; L84 Corns and callosities; Z79.4 Long term (current) use of insulin; Z79.84 Long term (current) use of oral hypoglycemic drugs | CPT/HCPCS: 11042 ==

== ENCOUNTER → 2025-01-23 09:53 | Outpatient (BNVA) | payer MEDICARE, SELFPAY | PROVIDERS: PCP Nurse Practitioner Family; Visit Provider Podiatrist Foot & Ankle Surgery | DX: E11.42 Type 2 diabetes mellitus with diabetic polyneuropathy (principal); E11.621 Type 2 diabetes mellitus with foot ulcer; L97.522 Non-pressure chronic ulcer of other part of left foot with fat layer exposed; L84 Corns and callosities; Z79.4 Long term (current) use of insulin; Z79.84 Long term (current) use of oral hypoglycemic drugs | CPT/HCPCS: 11042 ==

== ENCOUNTER → 2025-02-13 09:37 | Outpatient (BNVA) | payer MEDICARE, SELFPAY | PROVIDERS: PCP Nurse Practitioner Family; Visit Provider Podiatrist Foot & Ankle Surgery | DX: E11.42 Type 2 diabetes mellitus with diabetic polyneuropathy (principal); E11.621 Type 2 diabetes mellitus with foot ulcer; L97.522 Non-pressure chronic ulcer of other part of left foot with fat layer exposed; L84 Corns and callosities; Z79.84 Long term (current) use of oral hypoglycemic drugs; Z79.4 Long term (current) use of insulin | CPT/HCPCS: 99213 ==

== ENCOUNTER → 2025-02-27 11:44 | Outpatient (BNVA) | payer MEDICARE, SELFPAY | PROVIDERS: PCP Nurse Practitioner Family; Visit Provider Podiatrist Foot & Ankle Surgery | DX: E11.621 Type 2 diabetes mellitus with foot ulcer (principal); L97.522 Non-pressure chronic ulcer of other part of left foot with fat layer exposed; E11.42 Type 2 diabetes mellitus with diabetic polyneuropathy; L84 Corns and callosities; Z79.4 Long term (current) use of insulin; Z79.84 Long term (current) use of oral hypoglycemic drugs | CPT/HCPCS: 11043 ==

== ENCOUNTER → 2025-03-18 12:37 | Outpatient (BNVA) | payer MEDICARE, SELFPAY | PROVIDERS: PCP Nurse Practitioner Family; Visit Provider Podiatrist Foot & Ankle Surgery | DX: E11.621 Type 2 diabetes mellitus with foot ulcer (principal); L97.522 Non-pressure chronic ulcer of other part of left foot with fat layer exposed; E11.42 Type 2 diabetes mellitus with diabetic polyneuropathy; L84 Corns and callosities; Z79.4 Long term (current) use of insulin; Z79.84 Long term (current) use of oral hypoglycemic drugs | CPT/HCPCS: 11042; 11055; 99213 ==

== ENCOUNTER → 2025-04-08 13:34 | Outpatient (BNVA) | payer MEDICARE, SELFPAY | PROVIDERS: PCP Nurse Practitioner Family; Visit Provider Podiatrist Foot & Ankle Surgery | DX: E11.621 Type 2 diabetes mellitus with foot ulcer (principal); L97.522 Non-pressure chronic ulcer of other part of left foot with fat layer exposed; E11.42 Type 2 diabetes mellitus with diabetic polyneuropathy; L84 Corns and callosities; Z79.84 Long term (current) use of oral hypoglycemic drugs; Z79.4 Long term (current) use of insulin | CPT/HCPCS: 11042 ==

== ENCOUNTER → 2025-04-22 14:31 | Outpatient (BNVA) | payer MEDICARE, SELFPAY | PROVIDERS: PCP Nurse Practitioner Family; Visit Provider Podiatrist Foot & Ankle Surgery | DX: E11.42 Type 2 diabetes mellitus with diabetic polyneuropathy (principal); L60.3 Nail dystrophy; L84 Corns and callosities; E11.621 Type 2 diabetes mellitus with foot ulcer; L97.522 Non-pressure chronic ulcer of other part of left foot with fat layer exposed; Z79.84 Long term (current) use of oral hypoglycemic drugs; Z79.4 Long term (current) use of insulin | CPT/HCPCS: 11042; 11056; 11721 ==